=== PATIENT | female | born 1955 | race Caucasian/White ===

== ENCOUNTER 2019-09-11 08:00 | Outpatient (RCR) | payer OTHER, SELFPAY ==
--- NOTE | 2019-08-06 15:20 | PTOPEVAL ---
PHYSICAL THERAPY EVALUATION AND PLAN OF CARE 08-06-19 Physical Therapy evaluation was completed for the diagnosis of vertigo and dizziness. Treatment plan is 0-2x/week for 5 weeks. She will be out of town for one week of this time frame. Thank you for referring Danelle to [facility]. Please review, sign, date and return this plan of care ANA. I agree with and certify that the following plan of care is medically necessary. Referring Physician Date Attending Provider: Lisy Ken NP *PT Outpatient Evaluation Start: 08/06/19 14:10 Document 08/06/19 14:10 MANNIE (Rec: 08/06/19 15:20 MANNIE [id number]) Therapy Assessment Status Assessment Status Assessment Status Evaluation Outpatient Past Medical History Neurological History Hx Cerebrovascular Accident (CVA) Yes: L cerebral, residual of balance;onset of CVA was dizziness Hx Transient Ischemic Attacks (TIA) Yes Hx Other Neurological Disorders Yes: neuropathy in LE's, both legs from knees to feet Cardiovascular History Hx Other Cardiac Disorders Yes: take HTN meds for diabetic dx; low EF, then returned to normal Respiratory History Hx Respiratory Disorders No Significant History Gastrointestinal History Hx Gastrointestinal Disorders No Significant History Genitourinary History Hx Genitourinary Disorders No Significant History Musculoskeletal History Hx Back Pain Yes: general joint and getting old pain --knees,low back Hematological History Hx Hematological Disorders No Significant History Endocrine History Hx Diabetes Yes: med control HEENT History Hx Cataracts Yes: both eyes; Hx Other HEENT Disorders Yes: glasses-bifocals, correct vision, to eye dr within past year Integumentary History Hx Skin Disorders No Significant History Evaluation Information Problem Diagnosis vertigo, dizziness Onset Jul 23, 2019 Subjective Information woke up with dizziness Query Text:As Reported By Patient/ Family Previous Treatments Previous Treatments For This Problem prev PT in October 2017, here for vertigo Prior Level of Function Activity Level (Last 3 Months) Occupation retired in Aug 2018, social work at hospital; due to dizziness and balance; Hand Dominance Right Medications Home Meds (Include: OTC, RX, Vitamins, atorvastatin, gabapentin- Herbals, Dose, Route,and Frequency) neuropathy of hands and LE; Query Text:Home Med Entries Will No insulin, clopidogrel/plavix-
--- NOTE | 2019-09-11 08:51 | PTOPEVAL ---
PHYSICAL THERAPY DISCHARGE 09-11-2019 Mrs. Figueroa has received 7 Physical Therapy sessions, from August 06 to today, for the diagnosis of vertigo. During the therapy time frame, she had one fall, getting off an airplane and caught toe on threshold. And this past weekend, caught her toe on the threshold at home and fractured L toe. Then when cutting her L toe nails, cut her toe and was bleeding. She is covering the wound and monitoring. The PT goals were achieved; she no longer has dizziness/vertigo issues. She is independent with her home exercise program and safety education has been completed--wear shoes in her home, more cautious when walking and stairs to clear foot. Thank you for referring Mrs. Figueroa to [facility]. Please review, sign, date and return this plan of care ANA. I agree with and certify that the following plan of care is medically necessary. Referring Physician Date Attending Provider: Lisy Ken, [employer]PER[employer] *PT Outpatient Discharge Document 09/11/19 08:39 MANNIE (Rec: 09/11/19 08:51 MANNIE [id number]) Problem Subjective Information Danelle reports: has not had any Query Text:As Reported By Patient/ dizziness for about 3 weeks; Family broke L toe, hit it on threshold step in her home- did not fall, but broke toe; when cutting toe nail on L foot, cut her skin and bleeding due to plavix; feels like she has improved and ready for discharge from PT; is doing her home exercises and no questions. Pain Assessment Timing of Pain Assessment Timing of Pain Assessment Assessment Self Report Self Report Pain Level 0 Pain Score Pain Score 0: Self Report Lower Extremity Muscle Strength Testing General Lower Extremity Strength Gross Lower Extremity Strength standing: B PF and DF with 1 UE support, 10 reps through small range, to avoid increase in pain of L foot/toe; walking with head turns R/L and Up/down without loss of balance and no reports of dizziness; sitting: eye tracking up/down and side/side 10 reps with smooth eye motions and good control; standing turns to R and L 2x without any issues; self assessment with the Dizziness Handicap Inventory, she rated herself at 12= Low perception of handicap.
== END 2019-10-26 10:52 | disposition home or self-care (01) ==
LOC: ANHPT 08:00
PROVIDERS: PCP Nurse Practitioner Adult Health; Visit Provider Nurse Practitioner Adult Health
DX: R42 Dizziness and giddiness (principal)
CPT/HCPCS: 97110; 97162

== ENCOUNTER 2020-05-02 08:51 | Inpatient (IN) | payer OTHER, SELFPAY ==
[2020-05-02] VITALS (39 sets, daily range): BP systolic 104–169; BP diastolic 34–84; PULSE 75–102; RESP 15–34; TEMP 36.2–36.6; O2SAT 90–100; BMI 28.8
--- NOTE | ~2020-05-02 | XR_ITS ---
EXAMINATION: XR chest 2V DATE: 05/02/2020 12:20 INDICATION: Light sensitivity headache. TECHNIQUE: Frontal and lateral views of the chest were obtained. COMPARISON: Chest single view 11/08/2017 FINDINGS: The chest demonstrates clear lungs without pneumonia, pleural effusion, or pneumothorax. Th e heart size is normal. IMPRESSION: 1. No acute cardiopulmonary disease. Reviewed, dictated and finalized at location A.
--- NOTE | ~2020-05-02 | MR_ITS ---
EXAMINATION: MR brain IAC wo/w con EXAM DATE: 05/04/2020 12:21 INDICATION: Headaches, sensitivity to light. TECHNIQUE: Multi-sequential, multiplanar MR images of the brain, brainstem, internal auditory canals were obtained without contrast. Whole brain sagittal T1, axial diffusion, gradient echo (T2*), T1, T 2, FLAIR sequences obtained. High resolution coronal 3-D FIESTA, coronal T1 FSE, axial T1 FSPGR of t he internal auditory canals. Patient was then injected with 14 cc Multihance contrast intravenously. Postcontrast axial and coronal T1 weighted whole brain, axial and coronal high resolution T1 IAC seq uences obtained. Correlation is made to head CT 05/02/2020. Compared to prior MRI from 09/28/2018 FINDINGS: No evidence of mastoid or middle ear opacification. The 7th/8th cranial nerve complexes a re symmetric, normal in course and caliber. No cerebellopontine angle masses. Posterior fossa unrem arkable. There is a moderate-sized old left cerebellar infarction. Mild cerebral atrophy. There are no areas of restricted diffusion to suggest acute infarction. There is no acute hemorrhage seen on the T2*, a hemosiderin sensitive sequence. No intraparenchymal brain mass. The ventricles are normal in size. There are no extra-axial collections. Flow voids are seen in the cerebral arteries on the T2-weight ed sequences consistent with their expected patency. Patient has had bilateral ocular lens surgery. Soft tissue is unremarkable. There are no areas of abnormal enhancement on the postcontrast images . IMPRESSION: Moderate-sized old left cerebellar infarction. Reviewed, dictated and finalized at location A.
--- NOTE | ~2020-05-02 | CT_ITS ---
EXAMINATION: CT brain wo con DATE: 05/02/2020 09:27 INDICATION: Headache. TECHNIQUE: Computed tomography (CT) of the head was performed without intravenous contrast. The mA wa s adjusted according to patient size. Iterative reconstruction technique was employed. The dose-lengt h product was 605.33 mGy-cm. COMPARISON: Head CT 06/12/2019 FINDINGS: There is an old infarct in posterior inferior left cerebellum. There is no intracranial hem orrhage, acute infarction, or abnormal intracranial mass lesion. The ventricles are normal in size. T he paranasal sinuses are clear. There is a chronic small right mastoid effusion. There are likely joseline nges of ocular lens replacement surgeries. IMPRESSION: 1. Old infarct in left cerebellum. Reviewed, dictated and finalized at location A.
--- NOTE | 2020-05-02 09:06 | ED.HA ---
HPI - Headache General Chief Complaint: Headache Stated Complaint: light sensitivity, h/a , n/v Time Seen by Provider: 05/02/20 09:03 Source: patient Mode of arrival: ambulatory Limitations: no limitations History of Present Illness HPI Narrative: Pt c/o a headache, frontal, 8/10, non radiating, throbbing, accompanied by n/v started 2 days ago. Denies fever, neck stiffness, speech or visual disturbance, weakness, numbness or unsteady gait. Pt does admit to being dizzy earlier and now resolved. She states she has a h/o dizziness. MD elicited complaint: headache and migraine Related Data Home Medications Medication Instructions Recorded Confirmed atorvastatin 05/02/20 carvedilol 05/02/20 clopidogrel 05/02/20 duloxetine mg PO 05/02/20 gabapentin 05/02/20 insulin glargine [Lantus U-100 SUBCUT 05/02/20 Insulin] insulin lispro [Humalog KwikPen unit SUBCUT 05/02/20 Insulin] losartan 05/02/20 Allergies Allergy/AdvReac Type Severity Reaction Status Date / Time No Known Allergies Allergy Verified 05/02/20 09:06 Review of Systems Review of Systems: All systems reviewed & are unremarkable except as noted in HPI and below Constitutional: Constitutional: Denies body ache(s), Denies chills, Denies excessive sweating, Denies fatigue, Denies fever(s), Denies headache(s), Denies lethargy, Denies malaise, Denies weakness and Denies weight loss Eyes: Eyes: Denies blurry vision, Denies change in vision and Denies loss of vision ENT: Denies dizziness, Denies ear discharge, Denies headache(s), Denies lip swelling, Denies epistaxis, Denies nasal congestion, Denies neck pain, Denies throat swelling and Denies tongue swelling Cardiovascular: Cardiovascular: Denies chest pain, Denies chest pain at rest, Denies chest pain with activity, Denies diaphoresis, Denies rapid heart rate, Denies edema, Denies irregular heart rhythm, Denies lightheadedness, Denies palpitations, Denies dyspnea and Denies dyspnea on exertion Respiratory: Respiratory: Denies chest congestion, Denies cough, Denies hemoptysis, Denies dyspnea and Denies dyspnea on exertion Gastrointestinal: Gastrointestinal: Denies abdominal pain, Denies melena, Denies hematochezia, Denies diarrhea, Denies nausea, Denies vomiting and Denies hematemesis Musculoskeletal: Musculoskeletal: Denies abnormal gait, Denies deformity, Denies joint swelling, Denies limited range of motion, Denies neck pain and Denies numbness Neurologic: Denies Abnormal speech present, Denies abnormal gait, Denies confusion, Denies dizziness, Denies focal weakness, Denies loss of vision, Denies numbness, Denies Other visual disturbances, Denies Sensory deficit (Neuro) and Denies weakness Psychiatric: Psychiatric: Denies confusion, Denies depression, Denies auditory hallucinations, Denies homicidal ideation and Denies suicidal ideation Endocrine: Endocrine: Denies cold intolerance, Denies excessive sweating, Denies fatigue, Denies heat intolerance and Denies palpitations Hematologic/Lymphatic: Hematologic/Lymphatic: Denies easy bleeding and Denies easy bruising Allergic/Immunologic: Allergic/Immunologic: Denies lip swelling, Denies throat swelling and Denies tongue swelling [facility] Family History Family History (Updated 11/12/16 @ 23:56 by DOCTOR UNKNOWN) Father Cerebrovascular accident, Onset Age: 58 Family history of chronic obstructive pulmonary disease Family history of diabetes mellitus in first degree relative Family history of congestive heart failure Patient's father is Mother Carcinoma of colon Family history of diabetes mellitus in first degree relative Family history of coronary artery disease Family history of heart disease in male family member before age 55 Other Diabetes mellitus Family history of arthritis Family history of malignant neoplasm Social History Social History Smoking status: Never smoker Alcohol intake: current Exam
--- NOTE | 2020-05-02 09:12 | PC.NURSE ---
ERP at bedside for pt assessment.
--- NOTE | 2020-05-02 09:23 | PC.NURSE ---
Pt to CT.
--- NOTE | 2020-05-02 09:30 | PC.NURSE ---
Pt returned to room. No change in condition. Remains A&O x4 with clear speech. VSS.
[2020-05-02] MEDS: SODIUM CHLORIDE 0.9% IV 1,000 ML 999 ML IV CONT (09:31)
[2020-05-02] MEDS: diphenhydrAMINE HCl INJ 50 MG/ML VIAL 25 MG IV PUSH (09:32)
[2020-05-02] MEDS: METOCLOPRAMIDE HCL INJ 10 MG/2 ML VIAL IV PUSH (09:32)
--- NOTE | 2020-05-02 09:32 | PC.NURSE ---
Pt medicated per orders.
[2020-05-02 09:52] LABS: Basophils Absolute Auto 0.1 K/mm3 (0.0-0.1); Basophils Percent Auto 0.5 % (0.2-1.2); Eosinophils Absolute Auto 0.1 K/mm3 (0-0.3); Eosinophils Percent Auto 0.4 % (0-4.4); Hematocrit 49.7 % (37.0-47.0); Hemoglobin 16.2 g/dL (12.0-15.0); Immature Granulocyte Absolute 0.04 K/mm3 (0.00-0.031); Immature Granulocyte Percent A 0.3 % (0-0.5); Lymphocytes Absolute Auto 0.86 K/mm3 (0.9-3.2); Lymphocytes Percent Auto 5.9 % (18.3-44.2); Mean Corpuscular HGB Conc 32.6 g/dl (32-36); Mean Corpuscular Hemoglobin 31.5 pg (26-34); Mean Corpuscular Volume 96.5 fl (80-100); Mean Platelet Volume 10.9 fl (7.4-10.4); Monocytes Absolute Auto 0.4 K/mm3 (0.1-0.6); Monocytes Percent Auto 2.6 % (2.6-8.5); Neutrophils Absolute Auto 13.1 K/mm3 (1.3-6.7); Neutrophils Percent Auto 90.3 % (45.5-73.1); Platelet Count Result 278 k/mm3 (150-375); Red Blood Count 5.15 M/mm3 (4.2-5.4); Red Cell Distribution Width 12.5 % (11.5-14.5); White Blood Count 14.5 K/mm3 (4.5-10.0)
[2020-05-02 10:05] LABS: Anion Gap 22 mmol/L (8-16); Blood Urea Nitrogen 18 mg/dL (7-17); Calcium 10.8 mg/dL (8.4-10.2); Carbon Dioxide 15 mmol/L (22-30); Chloride 97 mmol/L (98-107); Estimated CRCL calculation 62 ml/min; Estimated Glomerular Filt Rate > 60; Glucose 476 mg/dL (65-105); Potassium 4.4 mmol/L (3.4-5.0); Sodium 134 mmol/L (137-145)
--- NOTE | 2020-05-02 10:16 | ECG_ITS ---
Measurements Intervals [place] Rate: 88 P: 37 MI: 190 QRS: -16 QRSD: 87 T: 19 QT: 381 QTc: 463 Interpretive Statements SINUS RHYTHM LOW QRS VOLTAGE IN PRECORDIAL LEADS INFERIOR INFARCT, AGE INDETERMINATE BASELINE ARTIFACT- I, II, AVR, AVL, AVF, V4-V6 ABNORMAL ECG Electronically Signed On 05-02-2020 20:15:34 CDT by Paolo Ahmadi D.O.
[2020-05-02 10:35] LABS: Alveolar/Arterial O2 Gradient 23.9 mmHg; Base Excess ABG -12.9 mEq/l (+/-2.0); Carboxyhemoglobin 0.7 % THb (0-2.0); Fractional Inspired Oxygen 21 %; HCO3 ABG 14.5 mEq/l (22.0-26.0); Methemoglobin ABG 0.4 %THb (0-1.5); Oxygen Saturation ABG 93.2 % (95.0-100.0); Oxyhemoglobin 92.8 % THb (90.0-100.0); PCO2 ABG 38.2 mmHg (35.0-45.0); PO2 ABG 80.1 mmHg (80.0-100.0); PO2 FiO2 Ratio Arterial Blood 3.81 %; Reduced Hemoglobin 6.1 %THb (0-5.0); Total Hemoglobin 14.5 g/dL (12.0-18.0)
[2020-05-02 10:38] LABS: Device ROOM AIR; Modified Allen's Test Pass; Site Drawn RIGHT RADIAL; pH ABG 7.196 (7.350-7.450)
[2020-05-02] MEDS: LACTATED RINGERS 1,000 ML 999 ML IV CONT ×2 (10:46→11:25)
[2020-05-02 11:39] LABS: Glucose Point of Care 317 (65-105)
[2020-05-02 11:50] LABS: Add Urine Microscopic? YES; Appearance Urine Clear (Clear); Bilirubin Urine Negative (Negative); Blood Urine Negative (Negative); Color Urine Straw (Yellow); Glucose Urine UA 3+ mg/dL (Negative); Ketones Urine 2+ mg/dL (Negative); Leukocyte Esterase Ur Trace LEU/UL (Negative); Mucus Urine Rare /lpf; Nitrate Urine Negative (Negative); Protein Urine 1+ mg/dL (Negative); RBC Urine 0-2 /hpf (0-2); Specific Grav Ur 1.025 (1.001-1.035); Urobilinogen Urine Negative mg/dL (<2.0); WBC Urine 0-3 /hpf
[2020-05-02] MEDS: SODIUM CHLORIDE 0.9% IV 1,000 ML 150 ML IV CONT (12:30)
[2020-05-02 13:04] LABS: Glucose Point of Care 357 (65-105)
[2020-05-02] MEDS: LACTATED RINGERS 1,000 ML 100 ML IV CONT (13:09)
[2020-05-02] MEDS: INSULIN HUMAN REGULAR (*BKC) 100 UNITS in SODIUM CHLORIDE 0.9% IV 99 ML 5.9 UNITS IV CONT (13:09)
[2020-05-02 14:08] LABS: Glucose Point of Care 345 (65-105)
--- NOTE | 2020-05-02 14:19 | WPDCNINT ---
Assessment and Plan Assessment and plan (1) DKA (diabetic ketoacidoses): Qualifiers: Diabetes mellitus complication detail: without coma Diabetes mellitus type: other specified (including RICHY) Qualified Code(s): E13.10 - Other specified diabetes mellitus with ketoacidosis without coma Code(s): E11.10 - Type 2 diabetes mellitus with ketoacidosis without coma Status: Acute Assessment and Plan: patient presented with headaches, nausea, vomiting was found to be in DKA with elevated anion gap, severe metabolic acidosis on ABGs - patient given 3 L IV fluid bolus in the ER and started on insulin infusion per DKA protocol - will transition to long-acting insulin and sliding scale insulin once anion gap closes - currently NPO except ice chips - 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 With the lights are dimmed pain seems to improve - patient received Benadryl, metoclopramide in the ED with improvement - CT brain showed old infarct in left cerebellum, no acute intracranial hemorrhage, acute infarction abnormal intracranial mass lesions were noted. - Tylenol for pain control (3) Hyperlipidemia: Qualifiers: Hyperlipidemia type: unspecified Qualified Code(s): E78.5 - Hyperlipidemia, unspecified Code(s): E78.5 - Hyperlipidemia, unspecified Status: Acute Assessment and Plan: and will continue statin (4) History of cerebellar stroke: Code(s): Z86.73 - Personal history of transient ischemic attack (TIA), and cerebral infarction without residual deficits Status: Acute Assessment and Plan: patient with history of cerebellar stroke, will continue Plavix, statin - patient with neuropathy, on gabapentin, will continue Additional Plan discussed with patient updated her with her condition and plan of care. I explained to her that she will be on the insulin infusion till her acid levels anion gap closes after which she will be transition to long-acting insulin Lantus and sliding scale insulin. I answered all questions code status: Full code critical care time spent: 37 minutes Due to a high probability of clinically significant, life threatening deterioration, the patient required my highest level of preparedness to intervene emergently and I personally spent this critical care time directly and personally managing the patient. This critical care time included obtaining a history; examining the patient; pulse oximetry; ordering and review of studies; arranging urgent treatment with development of a management plan; evaluation of patient's response to treatment; frequent reassessment; and discussions with other providers. It was exclusive of separately billable procedures and treating other patients and teaching time. Please see Assessment and Plan section and the rest of the note for further information on patient assessment and treatment Brilliandeer Lopper Consult Note Consult date: 05/02/20 Time Seen: 14:20 Reason for consult: diabetic ketoacidosis, headache, nausea, vomiting HPI: Gregoria Figueroa is a 64 year old female with significant past medical history of diabetes hyperlipidemia, CVA, depression, essential hypertension presented to the ED on 05/02/2020 with complains of headache, nausea, vomiting for 2 days. Patient denies any fevers, neck stiffness, speech or visual disturbances, weakness, numbness on steady gait. She has a history of dizziness. In the ED patient was found to be in DKA with elevated anion gap, significant metabolic acidosis on ABGs, blood sugars of 476. Hemoglobin A1c of 9.7. WBC count of 14.5. Patient was transfer the ICU for further management patient seen and examined t
[2020-05-02] MEDS: INSULIN HUMAN REGULAR (*BKC) 100 UNITS in SODIUM CHLORIDE 0.9% IV 99 ML 9.4 UNITS IV CONT (15:05)
[2020-05-02 15:19] LABS: Anion Gap 15 mmol/L (8-16); Blood Urea Nitrogen 13 mg/dL (7-17); Calcium 9.4 mg/dL (8.4-10.2); Carbon Dioxide 16 mmol/L (22-30); Chloride 103 mmol/L (98-107); Estimated CRCL calculation 80 ml/min; Estimated Glomerular Filt Rate > 60; Glucose 304 mg/dL (65-105); Magnesium 1.7 mg/dL (1.6-2.3); Potassium 4.1 mmol/L (3.4-5.0); Sodium 134 mmol/L (137-145)
--- NOTE | 2020-05-02 15:20 | PCDIET ---
Received Physician consult for DKA. Newly admitted today. Patient is currently on insulin drip, NPO. Called nurse today-we will educate prior to discharge.
[2020-05-02 15:30] LABS: Hemoglobin A1C 9.5 % (<5.7)
[2020-05-02] MEDS: ACETAMINOPHEN 325 MG TABLET 650 MG PO (16:14)
--- NOTE | 2020-05-02 16:14 | PM.IMHP ---
H&P: HPI History of Present Illness Date/Time: 05/02/20 16:14 Chief complaint: dka Narrative: Gregoria Figueroa is a 64 year old female Was a history of having diabetes type 1. She was diagnosed when she was 17 years old. She typically has her blood sugars under control. She is on long-acting insulin as well as Short-acting. The patient stated that she has been having headache on and off for about 3 days. She said that 1 night she laid down as she could remember she took her Lantus so she only took a portion of it in the next day she is running high to try to cover it with intermediate insulin. She felt like she could not catch up the blood sugars. This morning she had a severe headache and felt like she was dry. She stated that she felt like she lost control of her blood sugars as needed comes hospital. Plus she had a severe headache lower sciatic she never had before when she was having photophobia as well. She also had nausea with it but no vomiting. The patient was given 3 L of fluid bolus in the emergency room as per DKA protocol and she stated that she was having some relief. Her A1c is listed as 9.7. Her blood sugars are now in the 300s. Earlier today is 476. Her anion gap was 22 when she 1st came in and now 15. Patient was started on the DKA protocol and on insulin drip. Her head CT was just read as an old infarct in left cerebellum. Chest x-ray read as no acute cardiopulmonary disease. Arterial blood gases pH 7.196 initially with bicarb 14.5. Patient was admitted to the intensive care unit for DKA. She had 2+ ketones in her urine. 3+ glucose. White count was noted to be 14.5. H&H 16.2 and 49.7. Patient appears to be dry. Date of service 05/02/2020. Review of Systems Review of Systems: All systems reviewed & are unremarkable except as noted in HPI and below Constitutional: Constitutional: Reports as per HPI and Reports no additional constitutional complaints Eyes: Eyes: Reports as per HPI and Reports no additional eye complaints ENT: Reports system reviewed and no additional complaints, except as documented and Reports Normal hearing present Cardiovascular: Cardiovascular: Reports no additional cardiovascular complaints Respiratory: Respiratory: Reports no additional respiratory complaints and Reports no additional respiratory complaints Gastrointestinal: Gastrointestinal: Reports as per HPI and Reports no additional gastrointestinal complaints Musculoskeletal: Musculoskeletal: Reports no additional musculoskeletal complaints Integumentary/Breasts: Skin/Breast: Reports system reviewed and no additional complaints, except as docu and Reports as per HPI Neurologic: Reports system reviewed and no additional complaints, except as documented, Reports as per HPI and Reports Normal hearing present Psychiatric: Psychiatric: Reports no additional psychiatric complaints and Reports as per HPI Endocrine: Endocrine: Reports no additional endocrine complaints Hematologic/Lymphatic: Hematologic/Lymphatic: Reports no additional hematologic/lymphatic complaints Allergic/Immunologic: Allergic/Immunologic: Reports no additional allergic/immunologic complaints [facility] Past Medical History Medical History (Updated 05/02/20 @ 16:33 by Lula Cummings NP) Broken heart syndrome Closed left tibial fracture Congestive heart failure diastolic dysfunction Depression Diabetes type 1, uncontrolled A1c 9.7 Diabetic neuropathy Diabetic retinopathy Surgical History Surgical History (Updated 05/02/20 @ 16:27 by Lula Cummings NP) H/O bilateral cataract extraction H/O right breast biopsy History of section, classical x1 S/p bilateral carpal tunnel release Family History Family History Father Cerebrovascular accident, Onset Age: 58 Family history of chronic obstructive pulmonary disease Family history of diabetes mellitus in first degree relat
[2020-05-02 16:35] LABS: Glucose Point of Care 296 (65-105)
[2020-05-02 16:35] LABS: Glucose Point of Care 217 (65-105)
[2020-05-02] MEDS: KCL 20 MEQ/D5/0.45% SOD CHL 1,000 ML 150 ML IV CONT (16:50)
[2020-05-02 17:09] LABS: Glucose Point of Care 197 (65-105)
[2020-05-02 18:08] LABS: Glucose Point of Care 167 (65-105)
[2020-05-02 18:55] LABS: Glucose Point of Care 154 (65-105)
[2020-05-02 20:14] LABS: Anion Gap 4 mmol/L (8-16); Blood Urea Nitrogen 12 mg/dL (7-17); Calcium 9.5 mg/dL (8.4-10.2); Carbon Dioxide 26 mmol/L (22-30); Chloride 106 mmol/L (98-107); Estimated CRCL calculation 94 ml/min; Estimated Glomerular Filt Rate > 60; Glucose 153 mg/dL (65-105); Potassium 3.9 mmol/L (3.4-5.0); Sodium 136 mmol/L (137-145)
[2020-05-02 20:55] LABS: Glucose Point of Care 126 (65-105)
[2020-05-02] MEDS: ONDANSETRON INJ 4 MG/2 ML VIAL IV PUSH (21:30)
[2020-05-02] MEDS: carvediloL 3.125 MG TABLET PO (21:42)
[2020-05-02] MEDS: INSULIN GLARGINE (*BKC) 100 UNITS/ML 20 UNITS SUB-Q (21:43)
[2020-05-02] MEDS: GABAPENTIN 300 MG CAPSULE 600 MG PO (21:46)
[2020-05-02 21:49] LABS: Glucose Point of Care 122 (65-105)
[2020-05-02 22:53] LABS: Glucose Point of Care 152 (65-105)
[2020-05-03] VITALS (14 sets, daily range): BP systolic 107–136; BP diastolic 44–89; PULSE 68–98; RESP 16–22; TEMP 36.2–36.7; O2SAT 93–96
[2020-05-03] MEDS: IBUPROFEN 400 MG TABLET PO (01:05)
[2020-05-03 03:53] LABS: Basophils Absolute Auto 0.1 K/mm3 (0.0-0.1); Basophils Percent Auto 0.7 % (0.2-1.2); Eosinophils Absolute Auto 0.2 K/mm3 (0-0.3); Hematocrit 40.5 % (37.0-47.0); Hemoglobin 13.7 g/dL (12.0-15.0); Immature Granulocyte Absolute 0.02 K/mm3 (0.00-0.031); Immature Granulocyte Percent A 0.2 % (0-0.5); Lymphocytes Absolute Auto 2.59 K/mm3 (0.9-3.2); Lymphocytes Percent Auto 25.1 % (18.3-44.2); Mean Corpuscular HGB Conc 33.8 g/dl (32-36); Mean Corpuscular Hemoglobin 31.6 pg (26-34); Mean Corpuscular Volume 93.5 fl (80-100); Mean Platelet Volume 10.6 fl (7.4-10.4); Monocytes Absolute Auto 0.7 K/mm3 (0.1-0.6); Monocytes Percent Auto 7.2 % (2.6-8.5); Neutrophils Absolute Auto 6.7 K/mm3 (1.3-6.7); Neutrophils Percent Auto 64.8 % (45.5-73.1); Platelet Count Result 227 k/mm3 (150-375); Red Blood Count 4.33 M/mm3 (4.2-5.4); Red Cell Distribution Width 12.4 % (11.5-14.5); White Blood Count 10.3 K/mm3 (4.5-10.0)
[2020-05-03 04:11] LABS: Anion Gap 2 mmol/L (8-16); Blood Urea Nitrogen 8 mg/dL (7-17); Calcium 9.6 mg/dL (8.4-10.2); Carbon Dioxide 25 mmol/L (22-30); Chloride 108 mmol/L (98-107); Estimated CRCL calculation 114 ml/min; Estimated Glomerular Filt Rate > 60; Glucose 195 mg/dL (65-105); Magnesium 1.8 mg/dL (1.6-2.3); Phosphorus 2.7 mg/dL (2.5-4.5); Potassium 4.1 mmol/L (3.4-5.0); Sodium 135 mmol/L (137-145)
[2020-05-03 08:41] LABS: Glucose Point of Care 250 (65-105)
[2020-05-03] MEDS: INSULIN ASPART (*BKC) 100 UNITS/ML SUB-Q ×3 (09:12→18:00)
[2020-05-03] MEDS: GABAPENTIN 300 MG CAPSULE 600 MG PO ×3 (09:12→21:20)
[2020-05-03] MEDS: carvediloL 3.125 MG TABLET PO ×2 (09:13→20:21)
[2020-05-03] MEDS: ATORVASTATIN 40 MG TABLET 80 MG PO (09:13)
[2020-05-03] MEDS: CLOPIDOGREL BISULFATE 75 MG TABLET PO (09:13)
[2020-05-03] MEDS: LOSARTAN POTASSIUM 25 MG TABLET PO (09:13)
[2020-05-03] MEDS: DULoxetine HCL 60 MG CAPSULE.DR PO (09:16)
--- NOTE | 2020-05-03 11:00 | PC.NURSE ---
This patient, Gregoria Figueroa, was received from ICU on 05/03/20 at 1100. Personal belongings list checked and signed. Patient/family oriented to unit policies and routines. Report received from EVE Ling.
--- NOTE | 2020-05-03 11:20 | PC.NURSE ---
Patient transferred to [facility] at 1055 via wheelchair. Report called to Esau. Belongings and medications transferred with patient.
--- NOTE | 2020-05-03 11:58 | WPDINTPN ---
Progress Note: A&P Assessment and Plan (1) DKA (diabetic ketoacidoses): Qualifiers: Diabetes mellitus complication detail: without coma Diabetes mellitus type: other specified (including RICHY) Qualified Code(s): E13.10 - Other specified diabetes mellitus with ketoacidosis without coma Code(s): E11.10 - Type 2 diabetes mellitus with ketoacidosis without coma Status: Acute Assessment and Plan: patient presented with headaches, nausea, vomiting was found to be in DKA with elevated anion gap, severe metabolic acidosis on ABGs - patient transition to long-acting insulin sliding scale insulin with Accu-Cheks since her anion gap has closed. - Patient is tolerating p.o. diet - grapple crew leader human service technician to follow the patient - hemoglobin A1c is 9.7 - patient will have to follow-up with her primary care doctor or an washer off for better blood sugar control given her elevated hemoglobin A1c (2) Headache: Qualifiers: Headache type: unspecified Code(s): R51 - Headache Status: Acute Assessment and Plan: RESOLVED - patient presented with headache 6 to 7/10 intensity, very sensitive to light, constant in nature. With the lights are dimmed pain seems to improve - patient received Benadryl, metoclopramide in the ED with improvement - CT brain showed old infarct in left cerebellum, no acute intracranial hemorrhage, acute infarction abnormal intracranial mass lesions were noted. - Tylenol for pain control (3) Hyperlipidemia: Qualifiers: Hyperlipidemia type: unspecified Qualified Code(s): E78.5 - Hyperlipidemia, unspecified Code(s): E78.5 - Hyperlipidemia, unspecified Status: Chronic Assessment and Plan: continue statin (4) History of cerebellar stroke: Code(s): Z86.73 - Personal history of transient ischemic attack (TIA), and cerebral infarction without residual deficits Status: Chronic Assessment and Plan: patient with history of cerebellar stroke, -continue Plavix, statin - patient with neuropathy, continue gabapentin Additional Plan discussed with patient updated her with her condition and plan of care. I answered all questions code status: Full code critical care time spent: 31 minutes Due to a high probability of clinically significant, life threatening deterioration, the patient required my highest level of preparedness to intervene emergently and I personally spent this critical care time directly and personally managing the patient. This critical care time included obtaining a history; examining the patient; pulse oximetry; ordering and review of studies; arranging urgent treatment with development of a management plan; evaluation of patient's response to treatment; frequent reassessment; and discussions with other providers. It was exclusive of separately billable procedures and treating other patients and teaching time. Please see Assessment and Plan section and the rest of the note for further information on patient assessment and treatment Subjective Date/time seen: 05/03/20 11:58 Interval history: Reason for consult: diabetic ketoacidosis, headache, nausea, vomiting 05/03/2020: Patient seen examined this morning in the ICU, patient has been off insulin infusion, anion gap has closed, patient tolerating oral intake. Patient denies any chest pain, shortness of breath, abdominal pain, nausea, vomiting. Headache has also improved significantly. Patient with adequate urine output, afebrile and hemodynamically stable Review of Systems Review of Systems: All systems reviewed & are unremarkable except as noted in HPI and below Exam Const: General: comfortable and no acute distress HENMT: Mouth: Yes moist mucous membranes Eyes: Sclera: sclerae normal Pupils: Equal, round and reactive pupils present Neck: Neck: supple Resp: Effort & Inspection: normal respiratory effort Auscul
[2020-05-03 12:45] LABS: Hematocrit 42.7 % (37.0-47.0); Hemoglobin 14.4 g/dL (12.0-15.0); Mean Corpuscular HGB Conc 33.7 g/dl (32-36); Mean Corpuscular Hemoglobin 31.4 pg (26-34); Mean Corpuscular Volume 93.2 fl (80-100); Mean Platelet Volume 10.9 fl (7.4-10.4); Platelet Count Result 289 k/mm3 (150-375); Red Blood Count 4.58 M/mm3 (4.2-5.4); Red Cell Distribution Width 12.8 % (11.5-14.5); White Blood Count 9.2 K/mm3 (4.5-10.0)
[2020-05-03 12:59] LABS: Anion Gap 6 mmol/L (8-16); Blood Urea Nitrogen 11 mg/dL (7-17); Calcium 9.9 mg/dL (8.4-10.2); Carbon Dioxide 24 mmol/L (22-30); Chloride 102 mmol/L (98-107); Estimated CRCL calculation 69 ml/min; Estimated Glomerular Filt Rate > 60; Glucose 355 mg/dL (65-105); Magnesium 1.8 mg/dL (1.6-2.3); Potassium 4.5 mmol/L (3.4-5.0); Sodium 132 mmol/L (137-145)
[2020-05-03] MEDS: ACETAMINOPHEN 325 MG TABLET 650 MG PO ×2 (13:07→20:23)
[2020-05-03 13:15] LABS: Glucose Point of Care 348 (65-105)
[2020-05-03 13:48] LABS: Glucose Point of Care 335 (65-105)
--- NOTE | 2020-05-03 14:56 | PM.IMPN ---
Progress Note: A&P Assessment and Plan (1) DKA (diabetic ketoacidoses): Qualifiers: Diabetes mellitus complication detail: without coma Diabetes mellitus type: other specified (including RICHY) Qualified Code(s): E13.10 - Other specified diabetes mellitus with ketoacidosis without coma Code(s): E11.10 - Type 2 diabetes mellitus with ketoacidosis without coma Status: Acute Assessment and Plan: patient's anion gap is closing it is now 15. She is on the DKA protocol. She received 3 L of fluid in the emergency room. A1c is 9.7 resume Lantus and do sliding scale insulin once the patient is off of the insulin drip. Patient has leukocytosis but most likely it is stress related. paraeducator when able. 05/03/20 14:56 patient is 64-year-old female with history of type 1 diabetes since age of 17 patient states that she developed headache, severe throbbing with photophobia and nausea, patient also felt dehydrated and was tried to adjust her blood sugar with long-acting insulin however her blood sugar were rising and were not able to manage with long-acting insulin and sliding scale, patient presented emergency department and was found to have DKA with elevated anion gap and was quite dehydrated patient was given 3 L of bolus in the emergency department did improve her initial anion gap it was elevated with blood sugar 476, patient was started on insulin drip per DKA protocol and IV fluid and admitted to ICU which did bring blood sugar as well as her anion close to normal, today patient was transferred out of ICU, and she is now on her long-acting insulin as well as sliding scale, in terms of headache patient states though her CT scan of the brain is negative for any acute injury which showed patient with chronic cerebellar stroke, patient further states that her symptoms are similar to her last stroke with headache and later MRI showed the patient had a stroke, currently patient still complains of head and photophobia, patient denies any upper or lower extremity weakness or difficulty with speech, will go ahead and order MRI of the brain, consult neurologist for further recommendation, continue to hydrate the patient and monitor blood sugar, will have PT OT evaluate the patient (2) Hyperlipidemia: Qualifiers: Hyperlipidemia type: unspecified Qualified Code(s): E78.5 - Hyperlipidemia, unspecified Code(s): E78.5 - Hyperlipidemia, unspecified Status: Chronic Assessment and Plan: Continue with atorvastatin once the patient's anion gap is closed and she can we. (3) Diabetic neuropathy: Code(s): E11.40 - Type 2 diabetes mellitus with diabetic neuropathy, unspecified Status: Chronic Assessment and Plan: Patient is on duloxetine. And gabapentin (4) Depression: Code(s): F32.9 - Major depressive disorder, single episode, unspecified Status: Chronic Assessment and Plan: continue with duloxetine. (5) Congestive heart failure: Code(s): I50.9 - Heart failure, unspecified Status: Chronic Assessment and Plan: The patient is on Coreg and losartan. (6) Headache: Qualifiers: Headache type: unspecified Code(s): R51 - Headache Status: Acute Assessment and Plan: She was given Tylenol we can give her Toradol as well if need be. plan is above (7) History of cerebellar stroke: Code(s): Z86.73 - Personal history of transient ischemic attack (TIA), and cerebral infarction without residual deficits Status: Chronic Assessment and Plan: Continue bladder and atorvastatin. Subjective Date/time seen: 05/03/20 14:56 patient is 64-year-old female with history of type 1 diabetes since age of 17 patient states that she developed headache, severe throbbing with photophobia and nausea, patient also felt dehydrated and was tried to adjust her blood sugar with long-acting insulin however her blo
[2020-05-03 17:59] LABS: Glucose Point of Care 239 (65-105)
[2020-05-03] MEDS: INSULIN GLARGINE (*BKC) 100 UNITS/ML 30 UNITS SUB-Q (21:20)
[2020-05-03 21:29] LABS: Glucose Point of Care 260 (65-105)
[2020-05-04] MEDS: ACETAMINOPHEN 325 MG TABLET 650 MG PO ×2 (03:14→08:39)
[2020-05-04 06:00] VITALS: BP 138/56; PULSE 82; RESP 16; TEMP 36.3; O2SAT 93
[2020-05-04 06:02] LABS: Hematocrit 37.8 % (37.0-47.0); Hemoglobin 12.5 g/dL (12.0-15.0); Mean Corpuscular HGB Conc 33.1 g/dl (32-36); Mean Corpuscular Hemoglobin 31.3 pg (26-34); Mean Corpuscular Volume 94.5 fl (80-100); Platelet Count Result 196 k/mm3 (150-375); Red Cell Distribution Width 12.7 % (11.5-14.5); White Blood Count 6.5 K/mm3 (4.5-10.0)
[2020-05-04 06:09] LABS: Anion Gap 0 mmol/L (8-16); Blood Urea Nitrogen 12 mg/dL (7-17); Calcium 9.6 mg/dL (8.4-10.2); Carbon Dioxide 29 mmol/L (22-30); Chloride 106 mmol/L (98-107); Estimated CRCL calculation 79 ml/min; Estimated Glomerular Filt Rate > 60; Glucose 235 mg/dL (65-105); Potassium 3.7 mmol/L (3.4-5.0); Sodium 135 mmol/L (137-145)
[2020-05-04] MEDS: GABAPENTIN 300 MG CAPSULE 600 MG PO ×3 (06:23→21:46)
[2020-05-04 08:10] LABS: Glucose Point of Care 167 (65-105)
[2020-05-04] MEDS: LOSARTAN POTASSIUM 25 MG TABLET PO (08:35)
[2020-05-04 08:36] VITALS: PULSE 85
[2020-05-04] MEDS: carvediloL 3.125 MG TABLET PO ×2 (08:36→21:46)
[2020-05-04] MEDS: DULoxetine HCL 60 MG CAPSULE.DR PO (08:40)
[2020-05-04] MEDS: ATORVASTATIN 40 MG TABLET 80 MG PO (08:40)
[2020-05-04] MEDS: CLOPIDOGREL BISULFATE 75 MG TABLET PO (08:40)
[2020-05-04] MEDS: POTASSIUM CHLORIDE 20 MEQ TABLET 40 MEQ PO (08:40)
--- NOTE | 2020-05-04 11:33 | WPDNEURCNPN ---
Assessment and Plan Assessment and plan (1) Depression: Code(s): F32.9 - Major depressive disorder, single episode, unspecified Status: Chronic (2) Diabetic neuropathy: Code(s): E11.40 - Type 2 diabetes mellitus with diabetic neuropathy, unspecified Status: Chronic (3) Congestive heart failure: Code(s): I50.9 - Heart failure, unspecified Status: Chronic (4) Diabetes type 1, uncontrolled: Code(s): E10.65 - Type 1 diabetes mellitus with hyperglycemia Status: Chronic (5) History of cerebellar stroke: Code(s): Z86.73 - Personal history of transient ischemic attack (TIA), and cerebral infarction without residual deficits Status: Chronic (6) Hyperlipidemia: Qualifiers: Hyperlipidemia type: unspecified Qualified Code(s): E78.5 - Hyperlipidemia, unspecified Code(s): E78.5 - Hyperlipidemia, unspecified Status: Chronic (7) DKA (diabetic ketoacidoses): Qualifiers: Diabetes mellitus complication detail: without coma Diabetes mellitus type: other specified (including RICHY) Qualified Code(s): E13.10 - Other specified diabetes mellitus with ketoacidosis without coma Code(s): E11.10 - Type 2 diabetes mellitus with ketoacidosis without coma Status: Acute Additional Plan plan is to obtain the MRI and further recommendation accordingly in addition after the MRI Doppler study of the carotids will be obtain Ult[place] if necessary CT angiogram of the brain and cervical spine Consult date: 05/04/20 Time Seen: 10:15 HPI: Grgeoria Figueroa is a 64 year old female Admitted to the hospital for the complains of headache on and off for the last 72 hours reportedly 1 night she laid down as she could remember she took only portion of her insulin as she was running high other day and she was trying to cover it. in the morning she has severe headache and felt as if she was dry and thought that she lost the control of her blood sugar. But she also developed severe headache which she never had before along with the photophobia ,nausea though no true vomiting. subsequent to the ER she was given 3L of fluid bolus as a DKA protocol her A1c was listed as 9.7 with blood sugar in 300s and early in the morning it was 476 and 9 gap was 22 though when she came 1st it was 15. Her CT of the head revealed infarct in the left cerebellum with no acute cardiopulmonary disease clinically she was admitted to intensive care for DKA she had 2+ ketones in her urine 3+ glucose and white count was 14.5 with hemoglobin 16.2 Initial examination otherwise was unremarkable. Because of the seriousness of the case principal security architect got involved subsequently MRI was obtained and now the neurologist's consultation has been requested her most recent lab is unremarkable and CT scan of the head has shown old infarct in the left cerebellum as mentioned before. Review of Systems Review of Systems: All systems reviewed & are unremarkable except as noted in HPI and below PMFSH Past Medical History Medical History (Updated 05/02/20 @ 16:33 by Lula Cummings NP) Broken heart syndrome Closed left tibial fracture Congestive heart failure diastolic dysfunction Depression Diabetes type 1, uncontrolled A1c 9.7 Diabetic neuropathy Diabetic retinopathy Surgical History Surgical History (Updated 05/02/20 @ 16:27 by Lula Cummings NP) H/O bilateral cataract extraction H/O right breast biopsy History of section, classical x1 S/p bilateral carpal tunnel release Family History Family History Father Cerebrovascular accident, Onset Age: 58 Family history of chronic obstructive pulmonary disease Family history of diabetes mellitus in first degree relative Family history of congestive heart failure Patient's father is Mother Carcinoma of colon Family history of diabetes mellitus in first degree relative
[2020-05-04] MEDS: INSULIN ASPART (*BKC) 100 UNITS/ML SUB-Q ×2 (12:54→17:53)
[2020-05-04 12:59] LABS: Glucose Point of Care 320 (65-105)
[2020-05-04 14:00] VITALS: BP 100/44; PULSE 81; RESP 14; TEMP 37; O2SAT 97
--- NOTE | 2020-05-04 15:22 | PM.IMPN ---
Progress Note: A&P Assessment and Plan (1) DKA (diabetic ketoacidoses): Qualifiers: Diabetes mellitus complication detail: without coma Diabetes mellitus type: other specified (including RICHY) Qualified Code(s): E13.10 - Other specified diabetes mellitus with ketoacidosis without coma Code(s): E11.10 - Type 2 diabetes mellitus with ketoacidosis without coma Status: Acute Assessment and Plan: patient's anion gap is closing it is now 15. She is on the DKA protocol. She received 3 L of fluid in the emergency room. A1c is 9.7 resume Lantus and do sliding scale insulin once the patient is off of the insulin drip. Patient has leukocytosis but most likely it is stress related. special educator when able. 05/04/20 15:22 patient is 64-year-old female with history of type 1 diabetes since age of 17 patient states that she developed headache, severe throbbing with photophobia and nausea, patient also felt dehydrated and was tried to adjust her blood sugar with long-acting insulin however her blood sugar were rising and were not able to manage with long-acting insulin and sliding scale, patient presented emergency department and was found to have DKA with elevated anion gap and was quite dehydrated patient was given 3 L of bolus in the emergency department did improve her initial anion gap it was elevated with blood sugar 476, patient was started on insulin drip per DKA protocol and IV fluid and admitted to ICU which did bring blood sugar as well as her anion close to normal, today patient was transferred out of ICU, and she is now on her long-acting insulin as well as sliding scale, in terms of headache patient states though her CT scan of the brain is negative for any acute injury which showed patient with chronic cerebellar stroke, patient further states that her symptoms are similar to her last stroke with headache and later MRI showed the patient had a stroke, currently patient still complains of head and photophobia, patient denies any upper or lower extremity weakness or difficulty with speech, Today 05/04 Patient had an MRI of the brain, results are pending, Patient stats feeling better and no new symptoms, today patient was seen neurologist, waiting for the MRI results andfurther recommendation flow, continue to hydrate the patient and monitor blood sugar, will have PT OT evaluate the patient (2) Hyperlipidemia: Qualifiers: Hyperlipidemia type: unspecified Qualified Code(s): E78.5 - Hyperlipidemia, unspecified Code(s): E78.5 - Hyperlipidemia, unspecified Status: Chronic Assessment and Plan: Continue with atorvastatin once the patient's anion gap is closed and she can we. (3) Diabetic neuropathy: Code(s): E11.40 - Type 2 diabetes mellitus with diabetic neuropathy, unspecified Status: Chronic Assessment and Plan: Patient is on duloxetine. And gabapentin (4) Depression: Code(s): F32.9 - Major depressive disorder, single episode, unspecified Status: Chronic Assessment and Plan: continue with duloxetine. (5) Congestive heart failure: Code(s): I50.9 - Heart failure, unspecified Status: Chronic Assessment and Plan: The patient is on Coreg and losartan. (6) Headache: Qualifiers: Headache type: unspecified Code(s): R51 - Headache Status: Acute Assessment and Plan: She was given Tylenol we can give her Toradol as well if need be. plan is above (7) History of cerebellar stroke: Code(s): Z86.73 - Personal history of transient ischemic attack (TIA), and cerebral infarction without residual deficits Status: Chronic Assessment and Plan: Continue bladder and atorvastatin. Subjective Date/time seen: 05/04/20 15:22 patient is 64-year-old female with history of type 1 diabetes since age of 17 patient states that she developed headache, severe throbbing with photophobia an
[2020-05-04 17:40] LABS: Glucose Point of Care 329 (65-105)
[2020-05-04] MEDS: INSULIN GLARGINE (*BKC) 100 UNITS/ML 30 UNITS SUB-Q (20:58)
[2020-05-04 21:29] VITALS: BP 114/45; PULSE 79; RESP 16; TEMP 36.8; O2SAT 95
[2020-05-04 21:44] VITALS: BP 122/62
[2020-05-04 21:46] VITALS: PULSE 79
[2020-05-04 22:16] LABS: Glucose Point of Care 274 (65-105)
[2020-05-05 06:00] VITALS: BP 116/52; PULSE 70; RESP 16; TEMP 36.8; O2SAT 96
[2020-05-05 06:07] LABS: Hematocrit 37.2 % (37.0-47.0); Hemoglobin 12.4 g/dL (12.0-15.0); Mean Corpuscular HGB Conc 33.3 g/dl (32-36); Mean Platelet Volume 10.8 fl (7.4-10.4); Platelet Count Result 194 k/mm3 (150-375); Red Cell Distribution Width 12.4 % (11.5-14.5); White Blood Count 5.2 K/mm3 (4.5-10.0)
[2020-05-05 06:34] LABS: Anion Gap 1 mmol/L (8-16); Blood Urea Nitrogen 6 mg/dL (7-17); Calcium 9.6 mg/dL (8.4-10.2); Carbon Dioxide 35 mmol/L (22-30); Chloride 105 mmol/L (98-107); Estimated CRCL calculation 93 ml/min; Estimated Glomerular Filt Rate > 60; Glucose 135 mg/dL (65-105); Potassium 3.5 mmol/L (3.4-5.0); Sodium 141 mmol/L (137-145)
[2020-05-05] MEDS: GABAPENTIN 300 MG CAPSULE 600 MG PO (06:34)
[2020-05-05 07:48] LABS: Glucose Point of Care 114 (65-105)
[2020-05-05 08:46] VITALS: PULSE 70
[2020-05-05] MEDS: carvediloL 3.125 MG TABLET PO (08:46)
[2020-05-05] MEDS: LOSARTAN POTASSIUM 25 MG TABLET PO (08:46)
[2020-05-05] MEDS: DULoxetine HCL 60 MG CAPSULE.DR PO (08:46)
[2020-05-05] MEDS: ATORVASTATIN 40 MG TABLET 80 MG PO (08:46)
[2020-05-05] MEDS: CLOPIDOGREL BISULFATE 75 MG TABLET PO (08:46)
[2020-05-05] MEDS: ACETAMINOPHEN 325 MG TABLET 650 MG PO (08:50)
--- NOTE | 2020-05-05 09:14 | WPDNEUROPN ---
Progress Note: A&P Assessment and Plan (1) Depression: Code(s): F32.9 - Major depressive disorder, single episode, unspecified Status: Chronic (2) Diabetic neuropathy: Code(s): E11.40 - Type 2 diabetes mellitus with diabetic neuropathy, unspecified Status: Chronic (3) History of cerebellar stroke: Code(s): Z86.73 - Personal history of transient ischemic attack (TIA), and cerebral infarction without residual deficits Status: Chronic Additional Plan considering the cerebellar stroke if she has not had the rehab therapy in the past she might benefit with her gait dysfunction could very well be complicated by the cerebellar ataxia along with the diabetic neuropathy Review of Systems Review of Systems: All systems reviewed & are unremarkable except as noted in HPI and below Exam Narrative: Exam Narrative: on examination awake alert in no obvious acute distress ear nose throat examination normal eyes normal neck is supple with no cervical bruit no thyromegaly no lymphadenopathy no restricted range of motion heart regular with no murmur lungs clear to auscultation abdomen is soft with no organomegaly neurological examination reveals her to be awake alert cooperative his speech nor dysphasic no dysarthric nor dysphonic pupils round regular feels the vision full extraocular motors full paced symmetrical tongue midline uvula midline motor examination revealed her to have no drift but she had difficulties in ambulation with ataxia and dysmetria Objective Data Vital Signs Vital Signs: Vital Signs - 24 hr 05/04/20 14:00 05/04/20 21:29 05/04/20 21:44 Temperature 37.0 C 36.8 C Pulse Rate 81 79 Respiratory Rate 14 16 Blood Pressure 100/44 L 114/45 L 122/62 Pulse Oximetry 97 95 05/04/20 21:46 05/05/20 06:00 05/05/20 08:46 Temperature 36.8 C Pulse Rate 79 70 70 Respiratory Rate 16 Blood Pressure 116/52 L Pulse Oximetry 96 Intake/Output Intake/Output: Intake & Output 05/02/20 05/03/20 05/04/20 05/05/20 23:59 23:59 23:59 23:59 Intake Total 4391 1240 1980 300 Output Total 1400 0 700 Balance 2991 1240 1280 300 Meds/Results Medications: Active Medications Generic Name Dose Route Start Last Admin Trade Name Freq PRN Reason Stop Dose Admin Acetaminophen 650 mg 05/02/20 14:46 05/05/20 08:50 Tylenol Tablet PO 650 mg Q4H PRN Administration Headache Atorvastatin Calcium 80 mg 05/03/20 09:00 05/05/20 08:46 Lipitor PO 80 mg DAILY CHRIS Administration Carvedilol 3.125 mg 05/02/20 21:00 05/05/20 08:46 Coreg PO 3.125 mg Q12HR CHRIS Administration Clopidogrel Bisulfate 75 mg 05/03/20 09:00 05/05/20 08:46 Plavix PO 75 mg DAILY CHRIS Administration Dextrose 12.5 gm 05/02/20 21:14 Dextrose 50% Syringe IV PUSH PRN PRN Hypoglycemia Protocol Duloxetine HCl 60 mg 05/03/20 09:00 05/05/20 08:46 Cymbalta PO 60 mg DAILY CHRIS Administration Gabapentin 600 mg 05/02/20 22:00 05/05/20 06:34 Neurontin PO 600 mg Q8HR CHRIS Administration Glucagon 1 mg 05/02/20 21:14 Glucagon For Inj IM PRN PRN Hypoglycemia Protocol Glucose 15 gm 05/02/20 21:14 Glutose 15 PO PRN PRN Hypoglycemia Protocol Dextrose 1,000 mls @ 100 mls/hr 05/02/20 21:14 Dextrose 5% 1,000 Ml IVPB PRN PRN Hypoglycemia Protocol Insulin Aspart 4 - 8 units 05/03/20 08:00 05/05/20 08:45 Novolog SUB-Q Not Given [facility] Protocol Insulin Glargine 30 units 05/03/20 21:00 05/04/20 20:58 Lantus SUB-Q 30 units HS CHRIS Administration Losartan Potassium 25 mg 05/03/20 09:00 05/05/20 08:46 Cozaar PO 25 mg DAILY CHRIS Administration Ondansetron HCl 4 mg 05/02/20 14:46 05/02/20 21:30 Zofran Inj IV PUSH 4 mg Q6H PRN Administration Nausea And Vomiting Radiology Results: ITS Impressions Head CT 05/02/20 09:32 IMPRESSION: 1. Old in
--- NOTE | 2020-05-05 11:23 | PCDIET ---
Nutriton consult for DKA, patient has been educated see Nutritional Teaching Interventions. No further nutritional interventions needed at this time.
[2020-05-05 11:33] LABS: Glucose Point of Care 307 (65-105)
--- NOTE | 2020-05-05 11:33 | PM.DS ---
DS: Admitting Diagnosis Admitting Diagnosis Admitting Diagnosis: dka DS: Discharge Diagnosis Discharge Diagnosis (1) DKA (diabetic ketoacidoses): Qualifiers: Diabetes mellitus complication detail: without coma Diabetes mellitus type: other specified (including RICHY) Qualified Code(s): E13.10 - Other specified diabetes mellitus with ketoacidosis without coma Code(s): E11.10 - Type 2 diabetes mellitus with ketoacidosis without coma Status: Acute Assessment and Plan: patient's anion gap is closing it is now 15. She is on the DKA protocol. She received 3 L of fluid in the emergency room. A1c is 9.7 resume Lantus and do sliding scale insulin once the patient is off of the insulin drip. Patient has leukocytosis but most likely it is stress related. ceramics instructor when able. 05/04/20 15:22 patient is 64-year-old female with history of type 1 diabetes since age of 17 patient states that she developed headache, severe throbbing with photophobia and nausea, patient also felt dehydrated and was tried to adjust her blood sugar with long-acting insulin however her blood sugar were rising and were not able to manage with long-acting insulin and sliding scale, patient presented emergency department and was found to have DKA with elevated anion gap and was quite dehydrated patient was given 3 L of bolus in the emergency department did improve her initial anion gap it was elevated with blood sugar 476, patient was started on insulin drip per DKA protocol and IV fluid and admitted to ICU which did bring blood sugar as well as her anion close to normal, today patient was transferred out of ICU, and she is now on her long-acting insulin as well as sliding scale, in terms of headache patient states though her CT scan of the brain is negative for any acute injury which showed patient with chronic cerebellar stroke, patient further states that her symptoms are similar to her last stroke with headache and later MRI showed the patient had a stroke, currently patient still complains of head and photophobia, patient denies any upper or lower extremity weakness or difficulty with speech, Today 05/04 Patient had an MRI of the brain, results are pending, Patient stats feeling better and no new symptoms, today patient was seen neurologist, waiting for the MRI results andfurther recommendation flow, continue to hydrate the patient and monitor blood sugar, will have PT OT evaluate the patient (2) Hyperlipidemia: Qualifiers: Hyperlipidemia type: unspecified Qualified Code(s): E78.5 - Hyperlipidemia, unspecified Code(s): E78.5 - Hyperlipidemia, unspecified Status: Chronic Assessment and Plan: Continue with atorvastatin once the patient's anion gap is closed and she can we. (3) Diabetic neuropathy: Code(s): E11.40 - Type 2 diabetes mellitus with diabetic neuropathy, unspecified Status: Chronic Assessment and Plan: Patient is on duloxetine. And gabapentin (4) Depression: Code(s): F32.9 - Major depressive disorder, single episode, unspecified Status: Chronic Assessment and Plan: continue with duloxetine. (5) Congestive heart failure: Code(s): I50.9 - Heart failure, unspecified Status: Chronic Assessment and Plan: The patient is on Coreg and losartan. (6) Headache: Qualifiers: Headache type: unspecified Code(s): R51 - Headache Status: Acute Assessment and Plan: She was given Tylenol we can give her Toradol as well if need be. plan is above (7) History of cerebellar stroke: Code(s): Z86.73 - Personal history of transient ischemic attack (TIA), and cerebral infarction without residual deficits Status: Chronic Assessment and Plan: Continue bladder and atorvastatin. DS: Summary Hospital Course Reason for hospitalization: Chief complaint: dka Narrative: Gregoria Figueroa is a 64 year old
[2020-05-05] MEDS: INSULIN ASPART (*BKC) 100 UNITS/ML SUB-Q (11:55)
== END 2020-05-05 12:33 | disposition home or self-care (01) | DRG 639 ==
LOC: ANHED 12:50 → ANHICU 15:31 → ANH2MED 05-04 18:09 → ANHICU 05-06 16:14
PROVIDERS: Internal Medicine; Admitting Provider Internal Medicine; Emergency Provider Emergency Medicine; PCP Nurse Practitioner Adult Health; Visit Provider Family Medicine
DX: E10.10 Type 1 diabetes mellitus with ketoacidosis without coma (principal); Z86.73 Personal history of transient ischemic attack (TIA), and cerebral infarction without residual deficits; E78.5 Hyperlipidemia, unspecified; Z79.4 Long term (current) use of insulin; F32.9 Major depressive disorder, single episode, unspecified; I50.9 Heart failure, unspecified
CPT/HCPCS: 36415; 36600; 70450; 70553; 71046; 80048; 81001; 82375; 82805; 83036; 83050; 83735; 84100; 85025; 85027; 93005; 96361; 96374; 96375; 97161; 99285; A9270; A9577; J0696; J1200; J1815; J2405; J2765; J3480; J7030; J7120

== ENCOUNTER 2020-08-21 07:54 | Outpatient (CLI) | payer OTHER, SELFPAY ==
[2020-08-21 08:35] LABS: Alanine Aminotransferase 18 U/L (4-35); Albumin Level 3.9 g/dL (3.5-5.1); Alkaline Phosphatase 73 U/L (38-126); Anion Gap 1 mmol/L (8-16); Aspartate Amino Transferase 30 U/L (14-36); Bilirubin,Total 0.4 mg/dL (0.2-1.3); Blood Urea Nitrogen 17 mg/dL (7-17); Calcium 9.9 mg/dL (8.4-10.2); Carbon Dioxide 32 mmol/L (22-30); Chloride 104 mmol/L (98-107); Cholesterol 113 mg/dL (0-200); Estimated Glomerular Filt Rate > 60; Glucose 173 mg/dL (65-105); HDL Direct 48 mg/dL; Potassium 4.3 mmol/L (3.4-5.0); Sodium 137 mmol/L (137-145); Triglycerides 67 mg/dL (<150)
[2020-08-21 08:36] LABS: Hemoglobin A1C 8.4 % (<5.7)
[2020-08-21 08:46] LABS: LDL Cholesterol Direct 39 mg/dL
[2020-08-21 09:26] LABS: Free T4 Free Thyroxine 1.01 ng/mL (0.78-2.19)
[2020-08-21 09:34] LABS: MALB Creatinine Ratio 14.4 mg/g (0-30); Microalbumin Urine Random 10.8 mg/L (0-16.7)
[2020-08-26 06:14] LABS: C-Peptide <0.10 ng/mL (0.80-3.85)
== END 2020-08-21 07:55 | disposition home or self-care (01) ==
PROVIDERS: PCP Nurse Practitioner Adult Health; Referring Provider Internal Medicine Endocrinology, Diabetes & Metabolism; Visit Provider Nurse Practitioner Adult Health
DX: E11.40 Type 2 diabetes mellitus with diabetic neuropathy, unspecified (principal); E78.5 Hyperlipidemia, unspecified
CPT/HCPCS: 36415; 80053; 80061; 82043; 82607; 83036; 84439; 84443; 84681

== ENCOUNTER 2020-10-21 13:00 | Outpatient (RCR) | payer OTHER, SELFPAY ==
[2020-09-30 14:16] VITALS: BMI 30.3
[2020-09-30 14:18] VITALS: BMI 30.3
== END 2020-12-15 10:30 | disposition home or self-care (01) ==
LOC: ANHDMC 13:00
PROVIDERS: PCP Nurse Practitioner Adult Health; Visit Provider Internal Medicine Endocrinology, Diabetes & Metabolism
DX: E11.65 Type 2 diabetes mellitus with hyperglycemia (principal); Z71.3 Dietary counseling and surveillance; Z71.89 Other specified counseling
CPT/HCPCS: 97802; G0108

== ENCOUNTER 2020-11-27 08:55 | Outpatient (CLI) | payer OTHER, SELFPAY ==
[2020-11-27 09:35] LABS: Hemoglobin A1C 7.2 % (<5.7)
[2020-11-27 09:37] LABS: Alanine Aminotransferase 27 U/L (4-35); Albumin Level 4.2 g/dL (3.5-5.1); Alkaline Phosphatase 76 U/L (38-126); Anion Gap 4 mmol/L (8-16); Aspartate Amino Transferase 42 U/L (14-36); Bilirubin,Total 0.3 mg/dL (0.2-1.3); Blood Urea Nitrogen 14 mg/dL (7-17); Calcium 10.2 mg/dL (8.4-10.2); Carbon Dioxide 32 mmol/L (22-30); Chloride 105 mmol/L (98-107); Cholesterol 134 mg/dL (0-200); Estimated Glomerular Filt Rate > 60; Glucose 152 mg/dL (65-105); HDL Direct 58 mg/dL; Potassium 4.5 mmol/L (3.4-5.0); Sodium 141 mmol/L (137-145); Triglycerides 74 mg/dL (<150)
[2020-11-27 09:48] LABS: LDL Cholesterol Direct 51 mg/dL
[2020-11-27 09:56] LABS: Creatinine Urine 172.9 mg/dL
[2020-11-27 10:02] LABS: MALB Creatinine Ratio 12.6 mg/g (0-30); Microalbumin Urine Random 21.8 mg/L (0-16.7)
[2020-11-27 10:55] LABS: Free T4 Free Thyroxine Reflex 1.06 ng/dL (0.78-2.19)
[2020-11-27 12:02] LABS: Total Triiodothyronine (T3) 1.31 NG/ML (0.97-1.69)
== END 2020-11-27 08:56 | disposition home or self-care (01) ==
LOC: ANHLAB 08:57
PROVIDERS: PCP Nurse Practitioner Adult Health; Visit Provider Internal Medicine Endocrinology, Diabetes & Metabolism
DX: E10.65 Type 1 diabetes mellitus with hyperglycemia (principal); E78.5 Hyperlipidemia, unspecified
CPT/HCPCS: 36415; 80053; 80061; 82043; 83036; 84439; 84443; 84480

== ENCOUNTER 2021-01-27 09:13 | Outpatient (RCR) | payer OTHER, SELFPAY | END 2021-01-27 13:19 | disposition home or self-care (01) | LOC: ANHDMC 09:13 | PROVIDERS: PCP Nurse Practitioner Adult Health; Visit Provider Internal Medicine Endocrinology, Diabetes & Metabolism | DX: E11.65 Type 2 diabetes mellitus with hyperglycemia (principal); Z71.89 Other specified counseling | CPT/HCPCS: G0108 ==

== ENCOUNTER 2021-02-16 08:15 | Outpatient (CLI) | payer OTHER, SELFPAY ==
[2021-02-16 08:50] LABS: Cholesterol 132 mg/dL (0-200); HDL Direct 65 mg/dL; Triglycerides 72 mg/dL (<150)
[2021-02-16 08:53] LABS: Hemoglobin A1C 7.3 % (<5.7)
[2021-02-16 09:01] LABS: LDL Cholesterol Direct 43 mg/dL
[2021-02-16 13:14] LABS: Alanine Aminotransferase 31 U/L (4-35); Alkaline Phosphatase 70 U/L (38-126); Anion Gap 9 mmol/L (8-16); Aspartate Amino Transferase 43 U/L (14-36); Bilirubin,Total 0.4 mg/dL (0.2-1.3); Blood Urea Nitrogen 20 mg/dL (7-17); Calcium 11.1 mg/dL (8.4-10.2); Carbon Dioxide 25 mmol/L (22-30); Chloride 104 mmol/L (98-107); Estimated Glomerular Filt Rate > 60; Glucose 132 mg/dL (65-105); Potassium 4.7 mmol/L (3.4-5.0); Sodium 138 mmol/L (137-145)
== END 2021-02-16 08:16 | disposition home or self-care (01) ==
LOC: ANHLAB 08:17
PROVIDERS: PCP Nurse Practitioner Adult Health; Visit Provider Internal Medicine Endocrinology, Diabetes & Metabolism
DX: E10.9 Type 1 diabetes mellitus without complications (principal); E78.5 Hyperlipidemia, unspecified
CPT/HCPCS: 36415; 80053; 80061; 83036; 84439; 84443

== ENCOUNTER 2021-12-04 13:47 | Outpatient (CLI) | payer MEDICARE, SELFPAY ==
--- NOTE | ~2021-12-04 | MM_ITS ---
EXAMINATION: MM screening [facility] w [facility] HISTORY: Screening TECHNIQUE: Craniocaudal and mediolateral oblique 3-D tomosynthesis images were obtained and synthetic 2-D images were generated. CAD analysis was submitted and interpreted. COMPARISON: No prior mammogram is available for comparison at this institution. BREAST PARENCHYMAL COMPOSITION: There are scattered areas of fibroglandular density. FINDINGS: There are benign bilateral breast calcifications. There is no evidence of suspicious mass, calcification, or architectural distortion to suggest malignancy in either breast. There has been no suspicious interval change. IMPRESSION: 1. No mammographic evidence of malignancy. 2. Recommend routine screening mammography in one year. BI-RADS Category 2: Benign finding(s). Reviewed, dictated and finalized at location A.
--- NOTE | ~2021-12-04 | DEXA_ITS ---
Bone Density Report Name: DEBBIE IRELAND Age: 66 Sex: Female Ethnicity: White Date of : 1955 Indication: postmenopausal; screening for osteoporosis; hysterectomy; Referring Provider: ANTONIO LORENZO Study: Bone densitometry was performed. Exam Date: December 04, 2021 Accession number: [id number] Bone Density: Region BMD T-score Z-score Classification AP Spine(L1, L4) 1.037 0.0 1.7 Normal Femoral Neck (Left) 0.661 -1.7 -0.2 Osteopenia Total Hip (Left) 0.807 -1.1 0.1 Osteopenia Femoral Neck (Right) 0.699 -1.3 0.1 Osteopenia Total Hip (Right) 0.843 -0.8 0.4 Normal Total Hip Mean 0.825 -1.0 0.3 Normal World Health Organization criteria for BMD impression classify patients as: Normal (T-score at or above -1.0), Osteopenia (T-score between -1.0 and -2.5), or Osteoporosis (T-score at or below -2.5). 10-year Fracture Risk(1): Major Osteoporotic Fracture 9.0% Hip Fracture 1.0% Reported Risk Factors: [place] (), Neck BMD=0.661, BMI=28.0 (1) FRAX(R) Version 3.08. Fracture probability calculated for an untreated patient. Fracture probability may be lower if the patient has received treatment. Clinical Information Provided by Patient: Has used the following medications: Vitamin D Has the following medical conditions: Hysterectomy Patient maximum height was 63 Menopause Age: 47 No regular weight bearing exercise Drinks caffeinated beverages Onset of menses at age 14 Number of children 1 Impression: The patient has low bone mass, based on the Left Femoral Neck T-score. The patient has an estimated ten-year risk of hip fracture of 1% and an estimated ten-year risk of major fracture of 9%, based on the WHO FRAX algorithm. Discussion: BONE DENSITY IS LOW AT ONE OR MORE SKELETAL SITES. This patient's lowest T-score is low at one or more skeletal sites. It meets the World Health Organization's (WHO) criteria for ?low bone mass? (T-score between -1.0 and -2.5). The patient's 10-year risk of fracture as calculated by FRAX is less than the threshold where pharmacological therapy is recommended by the National Osteoporosis Foundation (NOF). However, all treatment decisions require clinical judgment and consideration of individual patient factors, including patient preferences, comorbidities, previous drug use, risk factors not captured in the FRAX model (e.g., frailty, falls, vitamin D deficiency, increased bone turnover, interval significant decline in bone density) and possible under or overestimation of fracture risk by FRAX. The patient should follow a healthful lifestyle (good nutrition with adequate calcium and vitamin D, and appropriate weight-bearing exercise). Follow-Up: Consider repeating this study in 2 to 3 years to reassess this patient's status, or sooner if there is some new
== END 2021-12-04 13:48 | disposition home or self-care (01) ==
PROVIDERS: PCP Nurse Practitioner Adult Health; Referring Provider Internal Medicine Endocrinology, Diabetes & Metabolism; Visit Provider Nurse Practitioner Adult Health
DX: Z12.31 Encounter for screening mammogram for malignant neoplasm of breast (principal); Z78.0 Asymptomatic menopausal state; M85.852 Other specified disorders of bone density and structure, left thigh; M85.851 Other specified disorders of bone density and structure, right thigh
CPT/HCPCS: 77063; 77067; 77080

== ENCOUNTER 2023-06-29 10:31 | Outpatient (CLI) | payer MEDICARE, SELFPAY ==
[2023-06-29 19:19] LABS: Free T4 Free Thyroxine 1.28 ng/mL (0.78-2.19)
== END 2023-06-29 10:32 | disposition home or self-care (01) ==
LOC: ANHWCLAB 10:32
PROVIDERS: PCP Nurse Practitioner Family; Visit Provider Internal Medicine
DX: E10.65 Type 1 diabetes mellitus with hyperglycemia (principal)
CPT/HCPCS: 36415; 84439; 84443

== ENCOUNTER 2023-10-17 09:07 | Outpatient (CLI) | payer MEDICARE, SELFPAY ==
[2023-10-17 13:03] LABS: Basophils Absolute Auto 0.1 K/mm3 (0.0-0.1); Basophils Percent Auto 0.7 % (0.2-1.2); Eosinophils Absolute Auto 0.4 K/mm3 (0-0.3); Hematocrit 46.3 % (37.0-47.0); Hemoglobin 14.2 g/dL (12.0-15.0); Immature Granulocyte Absolute 0.02 K/mm3 (0.00-0.031); Immature Granulocyte Percent A 0.3 % (0-0.5); Lymphocytes Absolute Auto 1.41 K/mm3 (0.9-3.2); Lymphocytes Percent Auto 18.4 % (18.3-44.2); Mean Corpuscular HGB Conc 30.7 g/dl (32-36); Mean Corpuscular Volume 97.7 fl (80-100); Mean Platelet Volume 11.5 fl (7.4-10.4); Monocytes Absolute Auto 0.5 K/mm3 (0.1-0.6); Monocytes Percent Auto 6.1 % (2.6-8.5); Neutrophils Absolute Auto 5.3 K/mm3 (1.3-6.7); Neutrophils Percent Auto 69.5 % (45.5-73.1); Platelet Count Result 237 k/mm3 (150-375); Red Blood Count 4.74 M/mm3 (4.2-5.4); Red Cell Distribution Width 13.5 % (11.5-14.5); White Blood Count 7.7 K/mm3 (4.5-10.0)
[2023-10-17 13:44] LABS: Vitamin D 25 Hydroxy 29.3 ng/mL
[2023-10-17 14:32] LABS: Alanine Aminotransferase 26 U/L (6-35); Alkaline Phosphatase 100 U/L (38-126); Anion Gap 4 mmol/L (8-16); Aspartate Amino Transferase 79 U/L (14-36); Bilirubin,Total 0.5 mg/dL (0.2-1.3); Blood Urea Nitrogen 19 mg/dL (7-17); Calcium 10.4 mg/dL (8.4-10.2); Carbon Dioxide 29 mmol/L (22-30); Chloride 106 mmol/L (98-107); Cholesterol 133 mg/dL (0-200); Estimated Glomerular Filt Rate > 60; Glucose 184 mg/dL (65-110); HDL Direct 67 mg/dL; Potassium 4.1 mmol/L (3.4-5.0); Sodium 139 mmol/L (137-145); Triglycerides 71 mg/dL (<150)
[2023-10-17 14:43] LABS: LDL Cholesterol Direct 48 mg/dL
[2023-10-17 15:02] LABS: Creatinine Urine 183.9 mg/dL
[2023-10-17 15:07] LABS: MALB Creatinine Ratio 27.6 mg/g (0-30); Microalbumin Urine Random 50.7 mg/L (0-16.7)
== END 2023-10-17 09:08 | disposition home or self-care (01) ==
PROVIDERS: PCP Nurse Practitioner Family; Visit Provider Nurse Practitioner Family
DX: E03.9 Hypothyroidism, unspecified (principal); E78.5 Hyperlipidemia, unspecified; M85.80 Other specified disorders of bone density and structure, unspecified site; E13.10 Other specified diabetes mellitus with ketoacidosis without coma
CPT/HCPCS: 36415; 80053; 80061; 82043; 82306; 82607; 84443; 85025

== ENCOUNTER 2024-01-13 08:59 | Outpatient (CLI) | payer MEDICARE, SELFPAY ==
[2024-01-13 11:03] LABS: Magnesium 1.9 mg/dL (1.6-2.3); Phosphorus 3.2 mg/dL (2.5-4.5)
[2024-01-13 11:46] LABS: Parathyroid Intact 116.5 pg/mL (7.5-53.5)
[2024-01-13 11:57] LABS: Vitamin D 25 Hydroxy 56.2 ng/mL
[2024-01-14 15:24] LABS: Ionized Calcium 5.5 mg/dL (4.7-5.5)
== END 2024-01-13 09:00 | disposition home or self-care (01) ==
LOC: ANHLAB 09:03
PROVIDERS: PCP Nurse Practitioner Family; Visit Provider Internal Medicine
DX: E03.9 Hypothyroidism, unspecified (principal); E83.52 Hypercalcemia
CPT/HCPCS: 36415; 82306; 82330; 83735; 83970; 84100

== ENCOUNTER 2024-01-16 08:31 | Outpatient (CLI) | payer MEDICARE, SELFPAY ==
[2024-01-16 10:36] LABS: Total Volume 24 Hour Urine 2300 ml
[2024-01-16 10:45] LABS: Creatinine 24 Hour Urine 0.8 gm/24 (0.8-1.8); Creatinine Urine 36.4 mg/dL
== END 2024-01-16 08:32 | disposition home or self-care (01) ==
LOC: ANHLAB 08:33
PROVIDERS: PCP Nurse Practitioner Family; Visit Provider Internal Medicine
DX: E03.9 Hypothyroidism, unspecified (principal); E83.52 Hypercalcemia
CPT/HCPCS: 81050; 82340; 82570

== ENCOUNTER 2024-06-27 19:14 | Emergency (ER) | payer MEDICARE, SELFPAY ==
--- NOTE | ~2024-06-27 | XR_ITS ---
EXAMINATION: XR chest 2V DATE: 06/27/2024 19:40 INDICATION: Chest pain. TECHNIQUE: Frontal and lateral views of the chest were obtained. COMPARISON: Chest 2 views 05/02/2020 FINDINGS: There is no pneumonia, pleural effusion, or pneumothorax. The heart size is normal. IMPRESSION: 1. No acute cardiopulmonary disease. Reviewed, dictated and finalized at location A. RTRICHOLOGIST
--- NOTE | 2024-06-27 19:14 | ECG_ITS ---
Test Date: 2024-06-27 19:19:57 Measurements Intervals [place] Rate: 90 P: 51 MI: 192 QRS: -21 QRSD: 73 T: 31 QT: 339 QTc: 415 Interpretive Statements SINUS RHYTHM POSSIBLE RIGHT VENTRICULAR CONDUCTION DELAY LOW QRS VOLTAGE IN PRECORDIAL LEADS CONSIDER ANTERIOR INFARCT, AGE INDETERMINATE INFERIOR INFARCT, AGE INDETERMINATE BASELINE ARTIFACT- I, II, AVR ABNORMAL ECG No previous ECG available for comparison Electronically Signed On 06-27-2024 20:22:23 [employer] ARCHITECT by Paolo hAmadi D.O.
[2024-06-27 19:47] LABS: Basophils Absolute Auto 0.1 K/mm3 (0.0-0.1); Basophils Percent Auto 0.7 % (0.2-1.2); Eosinophils Absolute Auto 0.2 K/mm3 (0-0.3); Eosinophils Percent Auto 1.5 % (0-4.4); Hematocrit 45.2 % (37.0-47.0); Hemoglobin 14.8 g/dL (12.0-15.0); Immature Granulocyte Absolute 0.02 K/mm3 (0.00-0.031); Immature Granulocyte Percent A 0.2 % (0-0.5); Lymphocytes Absolute Auto 1.48 K/mm3 (0.9-3.2); Lymphocytes Percent Auto 13.9 % (18.3-44.2); Mean Corpuscular HGB Conc 32.7 g/dl (32-36); Mean Corpuscular Hemoglobin 30.8 pg (26-34); Mean Corpuscular Volume 94.2 fl (80-100); Mean Platelet Volume 10.8 fl (7.4-10.4); Monocytes Absolute Auto 0.6 K/mm3 (0.1-0.6); Monocytes Percent Auto 5.2 % (2.6-8.5); Neutrophils Absolute Auto 8.3 K/mm3 (1.3-6.7); Neutrophils Percent Auto 78.5 % (45.5-73.1); Platelet Count Result 240 k/mm3 (150-375); White Blood Count 10.6 K/mm3 (4.5-10.0)
[2024-06-27 19:59] LABS: Alanine Aminotransferase 28 U/L (6-35); Albumin Level 4.3 g/dL (3.5-5.1); Alkaline Phosphatase 102 U/L (38-126); Anion Gap 5 mmol/L (4-12); Aspartate Amino Transferase 35 U/L (14-36); Bilirubin,Total 0.6 mg/dL (0.2-1.3); Blood Urea Nitrogen 22 mg/dL (7-17); Calcium 10.6 mg/dL (8.4-10.2); Carbon Dioxide 31 mmol/L (22-30); Chloride 99 mmol/L (98-107); Estimated Glomerular Filt Rate > 60; Glucose 432 mg/dL (65-110); Lipase 25 U/L (23-300); Potassium 4.2 mmol/L (3.4-5.0); Sodium 135 mmol/L (137-145)
[2024-06-27 20:10] LABS: INR 0.9; Prothrombin Time 12.5 Seconds (11.1-14.7)
[2024-06-27 20:11] LABS: Troponin I < 0.012 ng/mL (0.000-0.034)
--- NOTE | 2024-06-27 22:16 | ECG_ITS ---
Test Date: 2024-06-27 22:48:12 Measurements Intervals [place] Rate: 81 P: 31 VT: 199 QRS: -15 QRSD: 81 T: 54 QT: 371 QTc: 432 Interpretive Statements SINUS RHYTHM POSSIBLE RIGHT VENTRICULAR CONDUCTION DELAY BORDERLINE ST ABNORMALITY- ANTERIOR LEADS BASELINE ARTIFACT- I, III, AVR, AVL, AVF BORDERLINE ECG Myocardial infarct finding no longer present Electronically Signed On 06-28-2024 05:22:46 [employer] DEVELOPER by Paolo Ahmadi D.O.
[2024-06-27 22:41] VITALS: O2SAT 95
[2024-06-27 22:54] LABS: Troponin I < 0.012 ng/mL (0.000-0.034)
[2024-06-27 23:00] VITALS: BP 153/61; PULSE 79; RESP 16; O2SAT 94
--- NOTE | 2024-06-27 23:36 | ED_ITS ---
HPI - Chest Pain General Chief Complaint: Chest Pain Stated Complaint: chest pain Time Seen by Provider: 06/27/24 23:05 Source: patient Mode of arrival: ambulatory Limitations: no limitations History of Present Illness HPI narrative: This is a 68-year-old female with PMH of DM type 1, takotsubo cardiomyopathy, HTN who presents to the ED for chief complaint of midsternal chest pain this started about an hour prior to arrival. Describes it as a burning pain. It came on about 1-2 hours after eating this evening. Denies radiation of pain. Denies associated nausea, vomiting, syncope. Denies exertional component to pain. States that she is under a lot of stress with her mom going on hospice recently. Denies shortness of breath, cough, recent illness, fevers, chills, back pain. States that it is starting to subside Related Data Home Medications Medication Instructions Recorded Confirmed aspirin 81 mg tablet,delayed 81 mg PO DAILY 06/29/23 08/17/23 release (Adult Low Dose Aspirin) bimatoprost 0.01 % eye drops 1 drp EACH EYE DAILY 08/17/23 08/17/23 (Atuligan) blood-glucose sensor (Dexcom G6 08/17/23 08/17/23 Sensor device) fluticasone furoate 50 inhalation PRN 08/17/23 08/17/23 mcg/actuation blister powder for inhalation Allergies Allergy/AdvReac Type Severity Reaction Status Date / Time lisinopril AdvReac Mild Cough Verified 05/17/24 09:11 Review of Systems Review of Systems: All systems as dictated in HPI [facility] Past Medical History Medical History Broken heart syndrome Closed left tibial fracture Congestive heart failure diastolic dysfunction Depression Diabetes type 1, uncontrolled A1c 9.7 Diabetic neuropathy Diabetic retinopathy Hyperlipidemia Surgical History Surgical History H/O bilateral cataract extraction H/O right breast biopsy History of section, classical x1 S/p bilateral carpal tunnel release Family History Family History Father Cerebrovascular accident, Onset Age: 58 Family history of chronic obstructive pulmonary disease Family history of diabetes mellitus in first degree relative Family history of congestive heart failure Patient's father is Mother Carcinoma of colon Family history of diabetes mellitus in first degree relative Family history of coronary artery disease Family history of heart disease in male family member before age 55 Grandparent Thyroid disorder Other Diabetes mellitus Family history of arthritis Family history of malignant neoplasm Social History Social History Social History: she is to Carloz Fajardo . he is the durable power employment attorney for healthcare. She is a full code. She is lifelong nonsmoker. She is socially drinks but only rarely. She has 1 son. She is retired from [employer]. She does not use marijuana or any off drugs. 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 HEAD: Normocephalic, atraumatic. EYES: PERRLA and EOMI. ENT: Nares clear, no rhinorrhea or epistaxis. Mucous membranes moist. Oropharynx without tonsillar hypertrophy exudate or other lesions. NECK: Supple. No adenopathy or masses. CHEST: No respiratory distress. Clear to auscultation. No wheezes rales or rhonchi HEART: Regular rate and rhythm. No murmur heard. Normal peripheral pulses. ABDOMEN: Soft, nontender, nondistended, normal active bowel sounds. MSK: Normal range of motion. No edema. SKIN: Warm, dry, no rash. NEURO: Alert and oriented x4. No focal deficits. PSYCH: Normal mood and affect. Course Reevaluation(s) Reevaluation #1: Re-evaluated after the GI cocktail. She is feeling slightly better overall and feels ready to go home at this point. Date: 06/28/24 Time: 00:21 Vital Signs Vital signs: Vital Signs Pulse Oximetry 95 06/27/24 22:41 Oxygen Delivery Room Air 06/27/24 22:41 Pulse Rate 81 06/28/24 00:20 Respiratory Rate 14 06/28/24 00:20 Blood Pressure 160/69 H 06/28/24 00:20 Pulse Oximetry 100 06/28/24 00:20 Oxygen Delivery Room Air 06/27/24 22:41 MDM - Chest Pain MDM Narrative Medical decision making narrative: This is a 68-year-old female who presents to the ED for chief complaint of chest pain beginning earlier today. Vitals are normal. Exam is remarkable for the above. The pain appears to be in the subxiphoid region. EKG shows normal sinus rhythm CMP shows elevated blood sugar but otherwise unremarkable. Cbc unremarkable. Chest x-ray shows no acute findings. 0 and 3 hour troponins are normal. Heart score is 3. Did have some relief with GI cocktail. Suspect more of a gastritis/GERD today. On re-evaluation she feels ready to go home. Advised to take her medications as prescribed, especially with blood sugar being over 400. There is no evidence of DKA today. Patient will be discharged in stable condition. Supportive measures discussed and return precautions given. Patient is understanding and agreeable with plan for discharge with PCP follow-up. Lab Data 06/27/24 19:25 06/27/24 19:25 Labs: Lab Results 06/27/24 06/27/24 Range/Units 19:25 22:22 WBC 10.6 H (4.5-10.0) K/mm3 RBC 4.80 (4.2-5.4) M/mm3 Hgb 14.8 (12.0-15.0) g/dL Hct 45.2 (37.0-47.0) % MCV 94.2 (80-100) fl MCH 30.8 (26-34) pg MCHC 32.7 (32-36) g/dl RDW 13.0 (11.5-14.5) % Plt Count 240 (150-375) k/mm3 MPV 10.8 H (7.4-10.4) fl Immature Gran % (Auto) 0.2 (0-0.5) % Neut % (Auto) 78.5 H (45.5-73.1) % Lymph % (Auto) 13.9 L (18.3-44.2) % [place] % (Auto) 5.2 (2.6-8.5) % Eos % (Auto) 1.5 (0-4.4) % Baso % (Auto) 0.7 (0.2-1.2) % Lymph # (Auto) 1.48 (0.9-3.2) K/mm3 [place] # (Auto) 0.6 (0.1-0.6) K/mm3 Eos # (Auto) 0.2 (0-0.3) K/mm3 Baso # (Auto) 0.1 (0.0-0.1) K/mm3 Abs Immat Gran (auto) 0.02 (0.00-0.031) K/mm3 Absolute Neuts (auto) 8.3 H (1.3-6.7) K/mm3 Absolute Nucleated RBC 0.000 (0.0-0.012) K/mm3 Nucleated RBC % 0.0 (0.0-0.2) % PT 12.5 (11.1-14.7) Seconds INR 0.9 APTT 24.0 (22.3-36.8) Seconds Sodium 135 L (137-145) mmol/L Potassium 4.2 (3.4-5.0) mmol/L Chloride 99 (98-107) mmol/L Carbon Dioxide 31 H (22-30) mmol/L Anion Gap 5 (4-12) mmol/L BUN 22 H (7-17) mg/dL Creatinine 0.70 (0.7-1.0) mg/dL Estim Creat Clear Calc Not Reportable Estimated GFR > 60 (59 - ) Glucose 432 H (65-110) mg/dL Calcium 10.6 H (8.4-10.2) mg/dL Total Bilirubin 0.6 (0.2-1.3) mg/dL AST 35 (14-36) U/L ALT 28 (6-35) U/L Alkaline Phosphatase 102 (38-126) U/L Troponin I < 0.012 < 0.012 (0.000-0.034) ng/mL Total Protein 8.0 (6.3-8.2) g/dL Albumin 4.3 (3.5-5.1) g/dL Lipase 25 (23-300) U/L ECG Data EKG #1: ECG completion date: 06/27/24 ECG completion time: 19:19 Prior ECG tracings: not available for review Interpretation: Sinus rhythm Rate 90 Normal QRS Normal QTC No acute ischemic findings EKG #2: ECG completion date: 06/27/24 ECG completion time: 22:48 Prior ECG tracings: available for review Interpretation: Sinus rhythm Rate 81 Normal QRS Normal QTC Unchanged from previous ECG 3 hours ago No acute ischemia Discharge Plan Discharge Clinical Impression: Chest pain Patient Disposition: Home, Self-Care Condition: Stable Instructions: Antibiotic Form, Chest Pain (ED) Additional Instructions: Your exam and workup today is reassuring. You were seen for chest pain, however this may be more related to acid reflux or inflammation of the stomach. Please take Pepcid as prescribed and follow-up with PCP. If you have any new or worsening symptoms please return to the ER for further evaluation. Prescriptions: New famotidine [Pepcid] 40 mg tablet 40 mg PO DAILY Qty: 30 0RF No Action aspirin [Adult Low Dose Aspirin] 81 mg tablet,delayed release (DR/EC) 81 mg PO DAILY levothyroxine [Synthroid] 25 mcg tablet 25 mcg PO DAILY Qty: 90 0RF Glucagon Emergency Kit (human) 1 mg recon soln 1 mg subcut Q20M PRN (Reason: hypoglycemia) Qty: 1 0RF Rx Instructions: until target blood sugar attained fluticasone furoate 50 mcg/actuation blister with device inhalation PRN Lumigan 0.01 % drops 1 drp EACH EYE DAILY (DME) Dexcom G6 Sensor Device See Rx Instructions .Route Rx Instructions: As directed atorvastatin 80 mg tablet 80 mg PO DAILY Qty: 90 3RF duloxetine 60 mg capsule,delayed release(DR/EC) 60 mg PO DAILY Qty: 90 3RF losartan 25 mg tablet 25 mg PO DAILY Qty: 90 3RF (DME) Omnipod 5 G6 Intro Kit (Gen 5) Cartridge See Rx Instructions .Route Qty: 1 0RF Rx Instructions: As directed (DME) Omnipod 5 G6-G7 Pods (Gen 5) Cartridge See Rx Instructions .Route Qty: 30 0RF Rx Instructions: every 3 days (DME) Dexcom G7 Sensor Device See Rx Instructions .ROUTE .MEDSUPPLY Qty: 1 0RF Rx Instructions: every 10 days (DME) Dexcom G7 Oss Architect Misc See Rx Instructions .Route Qty: 1 0RF Rx Instructions: As directed (DME) Omnipod Dash Pods (Gen 4) Cartridge See Rx Instructions .ROUTE .COMPLEX Qty: 30 3RF Dose Instruction: CHANGE EVERY THIRD DAY Rx Instructions: CHANGE EVERY THIRD DAY insulin lispro [Humalog U-100 Insulin] 100 unit/mL solution See Rx Instructions .ROUTE .COMPLEX Qty: 40 3RF Dose Instruction: INJECT SUBCUTANEOUSLY DIRECTED PER SLIDING SCALE VIA INSULIN PUMP MAXIMUM DAILY DOSE: 50 UNITS Rx Instructions: INJECT SUBCUTANEOUSLY DIRECTED PER SLIDING SCALE VIA INSULIN PUMP MAXIMUM DAILY DOSE: 50 UNITS gabapentin 300 mg capsule See Rx Instructions .ROUTE .COMPLEX Qty: 360 2RF Dose Instruction: TAKE 2 CAPSULES BY MOUTH TWICE DAILY Rx Instructions: TAKE 2 CAPSULES BY MOUTH TWICE DAILY Follow-up/Referrals: Katie Rodríguez APRN [Primary Care Provider] - Time of Disposition: 00:22
[2024-06-28] MEDS: BELLADONNA ALK/PHENOB ELIX 10 ML, MAG HYDROX/ALUMINUM HYD/SIMETH 30 ML, LIDOCAINE HCL 2... PO (00:05)
[2024-06-28 00:20] VITALS: BP 160/69; PULSE 81; RESP 14; O2SAT 100
== END 2024-06-28 00:32 | disposition home or self-care (01) ==
PROVIDERS: Emergency Medicine; Emergency Provider Physician Assistant; PCP Nurse Practitioner Family
DX: R07.9 Chest pain, unspecified (principal); I50.9 Heart failure, unspecified; F32.A Depression, unspecified; E10.40 Type 1 diabetes mellitus with diabetic neuropathy, unspecified; E10.319 Type 1 diabetes mellitus with unspecified diabetic retinopathy without macular edema; E78.5 Hyperlipidemia, unspecified; R94.31 Abnormal electrocardiogram [ECG] [EKG]
CPT/HCPCS: 36415; 71046; 80053; 83690; 84484; 85025; 85610; 85730; 93005; 99284; A9270

== ENCOUNTER 2024-10-05 08:00 | Outpatient (RCR) | payer MEDICARE, SELFPAY ==
--- NOTE | 2024-09-05 09:31 | OPREHPOC ---
Outpatient Therapy Plan of Care This is a Multidisciplinary Plan of Care that may contain components documented by all disciplines (PT, OT, and ST.) PT Problem 1 PT Problem #1 Knowledge Deficit PT Goal 1 Goal / Goal Update *indep with HEP Target Visit 8 PT Problem 2 PT Problem #2 Impaired Strength PT Goal 1 Goal / Goal Update * increase strength of R and L LE's to improve dynamic balance and safety with activity: pt perform 20 reps of mat exercises Target Visit 8 PT Goal 2 Goal / Goal Update *single leg standing R and L x 10 seconds Target Visit 8 PT Problem 3 PT Problem #3 Impaired Functional Mobility PT Goal 1 Goal / Goal Update * improve Schultz balance score to 52/56, to improve balance Target Visit 8 PT Goal 2 Goal / Goal Update * pt transfer sitting/floor with use of UE on mat, modified independent. Target Visit 8
--- NOTE | 2024-09-05 09:31 | PTOPEVAL1 ---
Assessment and note entered by Sammie Quevedo, PT Evaluation Information Assessment Status Evaluation ICD-10 Condition Codes (PT) Difficulty Walking R26.2,Abnormalities of gait and mobility R26.9 Other ICD-10 Condition Codes ( R26.81 unsteady on feet PT) Onset June 2024 Subjective Information no falls, just more loss of balance with walking and having to side step to catch her balance; problems getting up from the floor. 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 She has not had any falls, but side steps to catch herself with walking. LE functional scale, self rating of 55% limitation in activity level. At home, she has not been doing any leg or fitness exercises. She is doing all of her self care and light home tasks. Avoids the stairs for safety. Her history includes CVA, bilateral knee & LBP, and decreased vision R eye. With the evaluation: 5 reps sit/stand time is WNL 2 minute walking test distance of 430'; Schultz balance score of 44/56---difficulty with single leg and small base of support activities; weakness of LE's- gross 4-/5. Skilled PT services are indicated to increase LE strength, gait and balance skills, with education for HEP and safety with mobility. Monitor knee and back pain as increase activity level. Plan of Care Interventions Neuro Re-education,Patient/Caregiver Education, Therapeutic Activities,Therapeutic Exercise PT Services Indicated Yes Treatment Frequency and 1-2x/wk for 8 visits Duration These treatments will address the objective and functional deficits as defined above. The patient will be advanced safely and appropriately in order for the patient to progress towards his/her prior level of function. Additional exercises will be introduced and as well as a comprehensive home exercise program upon discharge, if needed, ?to ensure carryover of functional gains achieved in the clinic. This treatment plan has been reviewed and agreement upon by the patient.
--- NOTE | 2024-10-05 08:51 | PTOPDC ---
Assessment and note entered by Sammie Quevedo, PT Assessment Status Discharge ICD-10 Condition Codes (PT) Difficulty Walking R26.2,Abnormalities of gait and mobility R26.9 Other ICD-10 Condition Codes ( R26.81 unsteady on feet PT) Onset June 2024 Subjective Information feel like I am stronger and have some good exercises for home; feel more steady when walking and more aware of how I walk to be safe; have not had any falls; Reported Pain Level Pain Score 0: Self Report Assessment PT Clinical Summary Danelle has received 8 PT sessions. She has improved in all areas: LE functional scale self rating from 55% to 29% limitation in activity level; Schultz balance score from 44 to 53/ 56, difficulty with single leg standing and tandem increase R and L LE strength; transfer sitting/ floor with use of UE on mat, modified indep; education for HEP and mobility safety. She has not had any falls since starting therapy. The goals were achieved, except single leg standing of 10 seconds. Discharge PT services. She is to continue with HEP and increase activity and walking as able. Plan of Care PT Services Indicated No
== END 2024-10-05 09:54 | disposition home or self-care (01) ==
LOC: ANHPT 08:00
PROVIDERS: PCP Nurse Practitioner Family; Visit Provider Nurse Practitioner Family
DX: R26.81 Unsteadiness on feet (principal)
CPT/HCPCS: 97110; 97112; 97116; 97161; 97530

== ENCOUNTER 2025-02-21 11:20 | Outpatient (CLI) | payer MEDICARE, SELFPAY ==
--- NOTE | ~2025-02-21 | DEXA_ITS ---
Bone Density Report Name: DEBBIE IRELAND Age: 69 Sex: Female Ethnicity: White Date of : 1955 Indication: hyperparathyroidism; hysterectomy; Referring Provider: HALINA ANGUIANO Study: Bone densitometry was performed. Exam Date: February 21, 2025 Accession number: [id number] Bone Density: Region BMD T-score Z-score Classification AP Spine(L1-L4) 1.289 2.2 4.1 Normal Femoral Neck (Left) 0.640 -1.9 -0.2 Osteopenia Total Hip (Left) 0.879 -0.5 0.9 Normal Femoral Neck (Right) 0.640 -1.9 -0.2 Osteopenia Total Hip (Right) 0.879 -0.5 0.8 Normal Femoral Neck Mean 0.640 -1.9 -0.2 Osteopenia Total Hip Mean 0.879 -0.5 0.8 Normal World Health Organization criteria for BMD impression classify patients as: Normal (T-score at or above -1.0), Osteopenia (T-score between -1.0 and -2.5), or Osteoporosis (T-score at or below -2.5). 10-year Fracture Risk(1): Major Osteoporotic Fracture 10% Hip Fracture 1.5% Reported Risk Factors: [place] (), Neck BMD=0.640, BMI=30.2 (1) FRAX(R) Version 3.08. Fracture probability calculated for an untreated patient. Fracture probability may be lower if the patient has received treatment. Clinical Information Provided by Patient: Has used the following medications: Forteo (i.e. parathyroid hormone), Vitamin D Has the following medical conditions: Hyperparathyroidism, Hysterectomy Menopause Age: 54 Does not regularly consume dairy products Drinks caffeinated beverages Onset of menses at age 14 Number of children 1 Impression: The patient has low bone mass, based on the Left Femoral Neck T-score. Discussion: BONE DENSITY IS LOW AT ONE OR MORE SKELETAL SITES. This patient's lowest T-score is low at one or more skeletal sites. It meets the World Health Organization's (WHO) criteria for ?low bone mass? (T-score between -1.0 and -2.5). The patient's 10-year risk of fracture as calculated by FRAX is less than the threshold where pharmacological therapy is recommended by the National Osteoporosis Foundation (NOF). However, all treatment decisions require clinical judgment and consideration of individual patient factors, including patient preferences, comorbidities, previous drug use, risk factors not captured in the FRAX model (e.g., frailty, falls, vitamin D deficiency, increased bone turnover, interval significant decline in bone density) and possible under or overestimation of fracture risk by FRAX. The patient should follow a healthful lifestyle (good nutrition with adequate calcium and vitamin D, and appropriate weight-bearing exercise). Follow-Up: Consider repeating this study in 2 to 3 years to reassess this patient's status, or sooner if there is some new clinical indication. Reported by: WALKER on 02/21/2025 11:55:00 AM. Reviewed, dictated and finalized at location A.
--- NOTE | ~2025-02-21 | MM_ITS ---
EXAMINATION: MM screening [place] BI w [place] HISTORY: Screening TECHNIQUE: Craniocaudal and mediolateral oblique 3-D tomosynthesis images were obtained and synthetic 2-D images were generated. CAD analysis was submitted and interpreted. COMPARISON: Comparison to multiple prior studies sequentially, with oldest reviewed study dated 12/04. BREAST PARENCHYMAL COMPOSITION: Not dense: There are scattered areas of fibroglandular density. FINDINGS: There is no evidence of suspicious mass, calcification, or architectural distortion to sugg est malignancy in either breast. There has been no suspicious interval change. IMPRESSION: 1. No mammographic evidence of malignancy. 2. Recommend routine screening mammography in one year. BI-RADS Category 1: Negative Reviewed, dictated and finalized at location B.
--- OUTSIDE RECORDS SUMMARY | 2025-02-21 11:29 | XMS_ITS | Continuity of Care Document ---
Author Organization [facility] Address [address] [place] [address] Phone Care Team Providers Care Lie Detector Operator Name Role Phone Napoleon Galaviz Unavailable Unavailable Procedures Procedure Date Eye Exam Established Pt Ophthalmoscopy, Subsequent Ophthalmoscopy, Subsequent Optic Nerve Topography Optic Nerve Topography Treatment Of Retinal Lesion Kenalog/Triamcinolone Acetonide Inj Treatment Of Retinal Lesion Advance Directives Directive Yes / No Effective Date File Name No Information Encounters Encounter Description Practice Location Reason(s) For Visit Diagnoses Date Provider Providers Copied on Encounter [facility], [address] [place] [address] [address], [place], [place], [id number], [place] tel:[phone] [facility] No Information Guillaume Bender. [address], [place], [facility], [place]. tel:[phone] Referring Provider: Napoleon Zambrano, [address], [place], [facility]. tel:[phone] [facility] [place] [facility], [address] [place] [address] [address], [place], [place], [id number], [place] tel:[phone] [facility] No Information Guillaume Bender. [address] [place], [address], [place]. tel:[phone] [facility] [place] [facility], [address] [place] [address] [address], [place], [place], [id number], [place] tel:[phone] [facility] No Information Guillaume Bender. [address] [place], [address], [place]. tel:[phone] Referring Provider: Napoleon Zambrano, [address] [place] [address], [address]. tel:[phone] Family History Family Member Type Diagnosis Age At Onset No Information Payers Payer name Insurance type Covered green party ID Authoriza tion(s) No Information Social History Type Description Quantity Date Captured Comments Sex Female Smoking Status No Information Chief Complaint And Reason For Visit No Information Reason For Referral Reason For Referral No Information History Of Present Illness Encounter Date Complaint History Of Prese nt Illness No Information Functional Status Date Functional Assessmen t No Information Instructions Date Instruction Additional Infor mation No Information Assessments Type Assessment Date No Information Patient Care Teams Name Effective Dates (start - stop) Status Members No Information
--- OUTSIDE RECORDS SUMMARY | 2025-02-21 11:29 | XMS_ITS | Encounter Summary ---
Author Organization [facility] Address [address] [place] [id number] Care Team Providers Care Line Maintenance Supervisor Name Role Phone Cassy Street MD Primary Care Provider [phone] Encounter Details Date Type Department Care Team (Late st Contact Info) Description 06/11/2017 Abstract [place] [address] , Generic Conversion, Social History Tobacco Use Types Packs/Day Years Used Date Smoking Tobacco: Never Assessed Comments Unknown Sex and Gender Information Value Date Recorded Sex Assigned at Not on file Legal Sex Female 7:55 PM CDT Gender Identity Not on file Sexual Orientation Not on file documented as of this encounter Plan of Treatment Not on file documented as of this encounter Visit Diagnoses Not on filedocumented in this encounter Care Teams Line Maintenance Supervisor Relationship Specialty Start Date End Date Cassy Street MD [address], [place] [address] PCP - General 09/30/14 documented as of this encounter
--- OUTSIDE RECORDS SUMMARY | 2025-02-21 11:29 | XMS_ITS | Clinical Summary ---
Author Organization [facility] Address [address] [place] [address] Care Team Providers Care Load Test Mechanic Name Role Phone Cassy Street MD Primary Care Provider Social History Tobacco Use Types Packs/Day Years Used Date Smoking Tobacco: Never Assessed Comments Unknown Sex and Gender Information Value Date Recorded Sex Assigned at Not on file Legal Sex Female 7:55 PM CDT Gender Identity Not on file Sexual Orientation Not on file Plan of Treatment Health Maintenance Due Date Last Done Comments Colorectal Cancer Screening Colonoscopy (10 Years) 1955 Hepatitis C 1975 DTaP, Tdap and Td Vaccines ( 1 - Tdap) 1976 Mammogram Screening 1997 Pneumococcal Vaccine: 50+ Ye ars (1 of 1 - PCV) 2007 Zoster Vaccines (1 of 2) 2007 Dexa Scan (General) 2022 COVID-19 Vaccine (1 - 2023-2 5 season) 2024 RSV Immunization or 60+ Years (1 - 1-dose 75+ series) 2032 Meningococcal B Vaccine Aged Out No l onger eligible based on patient's age to complete this topic Meningococcal Vaccine Aged Out No eder jitendra eligible based on patient's age to complete this topic RSV Immunizations Under 20 Months Aged Out No longer eligible based on patient's age to complete this topic Care Teams Load Test Mechanic Relationship Specialty Start Date End Date Cassy Street MD [address], [place] [address] PCP - General 09/30/14
--- OUTSIDE RECORDS SUMMARY | 2025-02-21 11:29 | XMS_ITS | Data Portability ---
Author Organization [place] - [facility] [employer], Main Office Address [address] [place] [address] Assessment No assessment recorded. Plan of Treatment Reminders Order Date Submit Date Provider Last Modified By Organization Details Last Modified Time Details Appointments None recorded. Lab None recorded. Referral endocrinolo kirill referral - type I diabetes, retinopathy , neuropathy. 2022 023 [email or web address] 3 [place], [address] [address], [place], [address], 3 08:13:16 endocrinolo gy referral - Was seeing Dr. Kramer. 2022 023 [email or web address] 3 [place], [address] [address], [place], [address], 3 08:15:44 Procedures None recorded. Surgeries None recorded. Imaging MAMMO, screening, digital, bilateral 20[email or web address] [place] [address] (Imaging), [address] [place] [address], [place], [address], 3 08:40:43 Medication Orders atorvastati n 80 mg tablet 2022 023 DIEUDONNE [facility], [address] [place] [address], [address], [place], [place], [id number], 3 10:16:40 Humalog U-100 Insulin 100 unit/mL subcutaneou s solution 2022 023 DIEUDONNE [facility], [address], [address], [place], [place], [id number], 3 10:14:02 Synthroid 25 mcg tablet 2022 023 DIEUDONNE [facility], [address], [address], [place], [address], 3 10:16:02 duloxetine 60 mg capsule,del ayed release 2022 023 DIEUDONNE [facility], [address] [place] [address], [facility] [address], [place], [place], [id number], 3 08:44:28 Patient TargetsNo targets recorded. Patient Instructions Encounter Date Encounter Id Patient Instructions Last Modified By Organization Details Last Modified Time 02/22/2023 [id number] Fu in 6 mo for htn, dm, lipid, thyroid, allergies, weight, hx CVA, [email or web address] Not available 02/22/2023 08:51:59 Reason for Referral Endocrinology Referral for W ell controlled type 1 diabetes mellitus type I diabetes, retinopathy, neuropathy. Referring Physician: [facility], Encounter Date: 02/22/2023 Endocrinology Referral for H ypothyroidism Was seeing Dr. Kramer. Referring Physician: [facility], Encounter Date: 02/22/2023 Results Created Date Observation Date Name Description Value Unit Range Abnormal Flag Note LastModifiedBy Organization Detail LastModifiedTime Result Notes None recorded. Problems Name Problem SNOMED Code Status Onset Date Resolution Date Notes Provider Name and Address Organization Details Recorded Time Acute sinusitis 21392364 Completed Not Available [facility] 3 01:02:50 Breast screening abnormal - told patient 101903188 Completed Not Available [facility] 3 01:02:50 Neuropathy due to diabetes mellitus 480881749 Active Not Available [facility] 3 01:02:50 Cerebrovas cular accident 041016201 Active Not Available [facility] 3 01:02:50 Fluid level behind tympanic membrane Completed Not Available [facility] 3 01:02:50 Headache 88396287 Completed Not Available [facility] 3 01:02:50 Dupuytren' s contractur e of finger 183634247 Completed Not Available [facility] 3 01:02:50 Menopause present 477966069 Active Not Available [facility] 3 01:02:50 Otitis externa 0297844 Completed Not Available [facility] 3 01:02:51 Localized osteoarthr osis 26121345 Completed Not Available [facility] 3 01:02:51 Dehydratio n 57956372 Completed Not Available [facility] 3 01:02:51 Sinusitis 02862430 Completed Not Available [facility] 3 01:02:51 Neuropathy 913087074 Completed Not Available [facility] 3 01:02:51 Contact dermatitis 33252856 Completed Not Available [facility] 3 01:02:51 Dizziness 723390914 Completed Not Available [facility] 3 01:02:51 Diabetic peripheral neuropathy 835013003 Active Not Available [facility] 3 01:02:52 Laryngitis 26319834 Completed Not Available [facility] 3 01:02:52 Type 1 diabetes mellitus 24736539 Active Not Available [facility] 3 01:02:52 Lichen planus 8496149 Completed Not Available [facility] 3 01:02:52 Retinopath y due to diabetes mellitus 2960668 Active Not Available [facility] 3 01:02:53 Hyperlipid emia 35316502 Active Not Available [facility] 3 01:02:53 Essential hypertensi on 66190869 Active Not Available [facility] 3 01:02:53 Otitis media 73431403 Completed Not Available [facility] 3 01:02:53 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 Not Available [facility] 3 01:02:53 Diabetes mellitus 44712221 Completed Not Available [facility] 3 01:02:54 Posterior rhinorrhea 91704627 Completed Not Available [facility] 3 01:02:54 Hypercalce any 86795994 Active 2021 Not Available [facility] 3 01:02:53 Dyslipidem ia 211003075 Active 2021 Not Available [facility] 3 01:02:51 Hypothyroi dism 19005858 Active 2021 Not Available [facility] 3 01:02:52 Well controlled type 1 diabetes mellitus 517832247 Active 2021 Not Available [facility] 3 01:02:52 Screening for malignant neoplasm of colon Active 2022 Not Available [facility] 3 01:02:50 Allergic rhinitis 00803135 Active 2022 MAURILIO Gale, [facility] [employer] [facility] 3 17:29:56 Seasonal allergy 431099282 Active 2022 Jelena Moe NP [address] [facility], [place] [address], [place], [address] , [facility] [employer] [facility] 3 08:26:55 Depressive disorder 97488124 Active 2022 Jelena Moe NP [address] [facility], [facility] [address], [place], [address] , [facility] [employer] [facility] 3 08:34:55 Problem Notes None recorded. Procedures Surgical History Date Name Laterality Status Provider Name and Address Organization Details Recorded Time 12/05/19 22 Most Recent Mammogram completed Jelena Amaral RN [facility] [employer] [facility] 02/22/2023 08:12:43 12/05/19 22 Most Recent Bone Density completed Jelena Amaral RN [facility] [employer] [facility] 02/22/2023 08:12:56 Cataract Surgery completed Not Available [facility] 10/06/2022 00:48:09 section completed Not Available [facility] 10/06/2022 00:48:09 Hysterectomy completed Not Available [facility] 10/06/2022 00:48:09 lumpectomy of breast completed Not Available [facility] 10/06/2022 00:48:09 Imaging Results None recorded. Procedure Notes None recorded. Medical Equipment None Reported. Allergies No known drug allergies Medications Name Sig Start Date Stop Date Status Note LastModified by Organization Details LastModified Time atorvasta tin 40 mg tablet Take 1 tablet every day by oral route at bedtime for 90 days. 03/06 completed Not Available Not Available Not Available atorvasta tin 80 mg tablet Take 1 tablet every day by oral route at bedtime for 90 days. 2022 active Not Available Not Available Not Avai lable prednison e 10 mg tablet Take by oral route with food. Day 1-4: 60 mg, Day 5-6: 50 mg, Day 7-8: 40 mg, Day 9-10: 30 mg, Day 11-12: 20 mg, Day 13-15: 10 mg. active Not Available Not Available No t Available gabapenti n 600 mg tablet Take 2 tablets 3 times a day by oral route for 90 days. 06/15 completed Not Available Not Available Not Available trazodone 50 mg tablet Take 0.5 tablets every day by oral route at bedtime. active Not Available Not Available No t Available Glucagon Emergency Kit 1 mg solution for injection Take 1 mg as needed by injectio n route as needed for 1 day. active Not Available Not Available No t Available benzonata te 200 mg capsule TAKE 1 CAPSULE BY MOUTH 3 TIMES DAILY active Not Available Not Available No t Available ondansetr on HCl 8 mg tablet Take 1 tablet every 8 hours by oral route. 03/06 completed Not Available Not Available Not Available Zithromax Z-Paco 250 mg tablet Take 2 TABLET EVERY DAY by oral route for 1 day. Than 1 tablet for 4 days active Not Available Not Available No t Available Lantus U-100 Insulin 100 unit/mL subcutane ous solution INJECT 40 UNITS SUBCUTAN EOUSLY EVERY DAY active Not Available Not Available No t Available clopidogr el 75 mg tablet TAKE 1 TABLET BY MOUTH DAILY active Not Available Not Available No t Available acyclovir 400 mg tablet Take 1 tablet by mouth two times daily active Not Available Not Available No t Available aspirin 81 mg tablet,de layed release Take 1 tablet every day by oral route. active Not Available Not Available No t Available tramadol 50 mg tablet TK 1 T PO Q 6 H 10/21 completed Not Available Not Available Not Available triamcino lone acetonide 0.1 % topical cream [place]ON AA QID ON WRIST active Not Available Not Available No t Available carvedilo l 3.125 mg tablet TAKE 1 TABLET BY MOUTH TWICE DAILY 08/25 completed HOLD Not Available Not Available Not Available ondansetr on 8 mg disintegr ating tablet DIS 1 T ON THE TONGUE Q 8 H PRN 12/05 completed Not Available Not Available Not Available clobetaso l 0.05 % topical gel APPLY TO THE AFFECTED AREA(S) TWICE A DAY NEEDED active Not Available Not Available No t Available pravastat in 10 mg tablet 1 tab po q hs active hyperlip idemia Not Available Not Available Not Available triamcino lone acetonide 0.1 % dental paste APPLY TO INVOLVED AREAS TWICE A DAY 03/06 completed Not Available Not Available Not Available Humalog U-100 Insulin 100 unit/mL subcutane ous solution inject 200 units every 72 hours x 90 days active Not Available Not Available No t Available Synthroid 25 mcg tablet TAKE 1 TABLET EVERY MORNING FOR HYPOTHYR OIDISM 2022 active Not Available Not Available Not Avai lable OneTouch Ultra Test strips Take 1 strip 4 times a day 10/06 completed Not Available Not Available Not Available meclizine 25 mg tablet Take 2 tablets every day by oral route. 06/20 completed Not Available Not Available Not Available promethaz ine 25 mg tablet active Not Available Not Available Not Available losartan 25 mg tablet TAKE 1 TABLET BY MOUTH DAILY active Not Available Not Available No t Available orphenadr ine citrate ER 100 mg tablet,ex tended release TK 1 T PO BID PRF SPASMS 10/21 completed Not Available Not Available Not Available gabapenti n 300 mg capsule TAKE 2 CAPSULES BY MOUTH TWICE DAILY active Not Available Not Available No t Available diclofena c sodium 75 mg tablet,de layed release Take 1 tablet 3 times a day by oral route for 90 days. active Not Available Not Available No t Available acyclovir 200 mg capsule Take 1 capsule twice a day by oral route for 90 days. 10/21 completed Not Available Not Available Not Available clobetaso l 0.05 % topical ointment APPLY TO RASH AREAS BID active Not Available Not Available No t Available irbesarta n 150 mg tablet TAKE 1 TABLET DAILY active Not Available Not Available No t Available scopolami ne 1 mg over 3 days transderm al patch (1 mg over 3 days) (USE 1 PATCH Q 72 HOURS) active when travelin g Not Available Not Available Not Available methylpre dnisolone 4 mg tablets in a dose pack Take as directed on pack. Directio ns for Medrol Dosepak: 1st day: 2 tablets before breakfas t, 1 tablet after lunch and after supper, and 2 tablets at bedtime. 2nd day: 1 tablet before breakfas t. 1 tablet after lunch and after supper, and 2 tablets at bedtime. 3rd day: 1 tablet before breakfas t, after lunch, after supper and at bedtime. 4th day: 1 tablet before breakfas t, after lunch and at bedtime. 5th day: 1 tablet before breakfas t and at bedtime. 6th day: 1 tablet before breakfas t 05/19 completed Not Available Not Available Not Available ketorolac 60 mg/2 mL intramusc ular solution Inject 2 mL every day by intramus cular route for 1 day. 08/25 completed Not Available Not Available Not Available ondansetr on 4 mg disintegr ating tablet active PRN Not Available Not Available Not Available fluticaso ne propionat e 50 mcg/actua tion nasal spray,elizabeth pension SHAKE LQ AND U 2 SPRAYS IEN QD active Not Available Not Available No t Available lisinopri l 2.5 mg tablet Take 1 tablet every day by oral route for 30 days. active Not Available Not Available No t Available amoxicill in 875 mg-potass ium clavulana te 125 mg tablet TK 1 T PO Q 12 H FOR 10 DAYS active Not Available Not Available No t Available Novolog FlexPen U-100 Insulin aspart 100 unit/mL (3 mL) subcutane ous Inject 8 units 4 times a day by subcutan eous route for 90 days. active Not Available Not Available No t Available Ciprodex 0.3 %-0.1 % ear drops,elizabeth pension INSTILL 4 DROPS INTO AFFECTED EAR(S) BY OTIC ROUTE 2 TIMES PER DAY FOR 7 DAYS active Not Available Not Available No t Available metoprolo l tartrate 25 mg tablet active Not Available Not Available Not Available duloxetin e 30 mg capsule,d elayed release TAKE 1 CAPSULE BY MOUTH TWICE DAILY active Not Available Not Available No t Available duloxetin e 60 mg capsule,d elayed release Take 1 capsule every day by oral route. active Not Available Not Available No t Available BD Ultra-Fin e Mini Pen Needle 31 gauge x 10/21 active Not Available Not Available Not Available Lyrica 50 mg capsule TK ONE C PO TID 10/17 completed Not Available Not Available Not Available chlorhexi dine gluconate 0.12 % mouthwash 08/25 completed Not Available Not Available Not Available Fish Oil 1 PO QD (1200 MG) 08/25 completed Not Available Not Available Not Available Centrum Silver 1 PO QD 02/22 completed Not Available Not Available Not Available Levemir U-100 Insulin 100 unit/mL subcutane ous solution INJECT 35 UNITS UNDER THE SKIN DAILY active Not Available Not Available No t Available BD Insulin Syringe Ult-Fine II 0.5 mL 31 gauge x 5/16 10/06 completed Not Available Not Available Not Available BD Ultra-Fin e Original Pen Needle 29 gauge x 1/2 10/06 completed Not Available Not Available Not Available Glucos Chond Cplx Advanced 1 PO BID 08/25 completed Not Available Not Available Not Available Humalog KwikPen (U-100) Insulin 100 unit/mL subcutane ous INJECT SUBCUTAN EOUSLY 8 UNITS 4 TIMES DAILY 03/06 completed Not Available Not Available Not Available Humalog KwikPen Insulin 8 units plus sliding scale prn 06/24 completed Not Available Not Available Not Available Besivance 0.6 % eye drops,elizabeth pension 08/11 completed Not Available Not Available Not Available OneTouch Delica Lancets 33 gauge 10/06 completed Not Available Not Available Not Available Suprep Bowel Prep Kit 17.5 gram-3.13 gram-1.6 gram oral solution TK UTD 01/05 completed Not Available Not Available Not Available Lumigan 0.01 % eye drops active Not Available Not Available No t Available Lotemax 0.5 % eye gel drops INT 1 GTT IN OS TID DIRECTED . START AFTER SURGERY 08/11 completed Not Available Not Available Not Available Prolensa 0.07 % eye drops 08/11 completed Not Available Not Available Not Available Levemir FlexTouch U-100 Insulin 100 unit/mL (3 mL) subcutane ous pen Inject 35 units every day by sub-q route for 90 days. active Not Available Not Available No t Available Omnipod Dash Pods (Gen 4) subcutane ous cartridge CHANGE POD EVERY [address] Kramer Not Available Not Available No t Available Tresiba U-100 Insulin 100 unit/mL subcutane ous solution ADMINIST ER 30 UNITS UNDER THE SKIN EVERY DAY AT BEDTIME 10/13 completed Not Available Not Available Not Available FreeStyle Sara 2 Sensor kit USE DIRECTED AND CHANGE SENSOR EVERY 14 DAYS FOR GLUCOSE MONITORY ING active Not Available Not Available No t Available Darien COVID-19 Vaccine (EUA) 08/25 completed first dose taken on 10/11/20 Not Available Not Available Not Available BinaxNOW COVID-19 Ag Self Test kit Use as Directed on the Package 02/22 completed Not Available Not Available Not Available Vitals Date Recorded Body mass index (BMI) Body height Oxygen saturation Oxygen saturation in Arterial blood by Pulse oximetry Heart rate Respiratory rate Body temperature Body weight Systolic And Diastolic Provider Name and Address Organization Details Last Updated DateTime 3 28.6 kg/m2 160.02 cm 98 % 98 % 69 /min 16 /min 97.9 [degF] 80538.4 5 g 141/65 mm[Hg] Not Available [facility] 3 00:57:19 Date Recorded Body height Oxygen saturation Oxygen saturation in Arterial blood by Pulse oximetry Heart rate Body temperature Systolic And Diastolic Provider Name and Address Organization Details Last Updated DateTime 2 160.02 cm 94 % 94 % 79 /min 97.5 [degF] 106/72 mm[Hg] Not Available [facility] 3 00:57:18 Date Recorded Body height Body mass index (BMI) Body weight Body temperature Heart rate Oxygen saturation Oxygen saturation in Arterial blood by Pulse oximetry Systolic And Diastolic Provider Name and Address Organization Details Last Updated DateTime 3 160.02 cm 29.5 kg/m2 19949.4 8 g 96.4 [degF] 67 /min 96 % 96 % 140/72 mm[Hg] Jelena Amaral RN [facility] [employer] 3 08:10:24 Date Recorded Body height Body mass index (BMI) Body weight Body temperature Heart rate Systolic And Diastolic Provider Name and Address Organization Details Last Updated DateTime 3 160.02 cm 30.2 kg/m2 02952.8 6 g 97.3 [degF] 89 /min 134/63 mm[Hg] Shayy Fitzgerald MA [facility] [employer] [facility] 3 09:57:40 Date Recorded Body mass index (BMI) Body height Oxygen saturation Oxygen saturation in Arterial blood by Pulse oximetry Heart rate Body temperature Body weight Systolic And Diastolic Provider Name and Address Organization Details Last Updated DateTime 2 28.5 kg/m2 160.02 cm 99 % 99 % 76 /min 97.7 [degF] 00871.3 7 g 117/75 mm[Hg] Not Available [facility] 3 00:57:19 Social History Question Answer Notes LastModified by Organizat ion Details LastModified Time Tobacco Smoking Status Never Smoker Maday samson, [facility] [employer] [facility] 03/24/2023 09:39:43 Do You Have An Advance Directive? Yes [id number] Information not available 10/06/2022 Are You Blind Or Do You Have Difficulty Seeing? No Information not available 03/24/2023 What Is Your Level Of Caffeine Consumption? Moderate [id number] Information not available 10/06/2022 How Much Tobacco Do You Chew? None [id number] Information not available 10/06/2022 What Is Your Code Status? Full Code Information not available 03/24/2023 In The 14 Days Before Symptom Onset, Have You Had Close Contact With A Laboratory-confir med COVID-19 While That Case Was Ill? No Information not available 03/24/2023 In The 14 Days Before Symptom Onset, Have You Had Close Contact With A Person Who Is Under Investigation For COVID-19 While That Person Was Ill? No Information not available 03/24/2023 Are You Deaf Or Do You Have Serious Difficulty Hearing? No Information not available 03/24/2023 What Type Of Diet Are You Following? DIABETIC [id number] Information not available 10/06/2022 Which Illicit Or Recreational Drugs Have You Used? None Information not available 03/24/2023 What Is The Highest Grade Or Level Of School You Have Completed Or The Highest Degree You Have Received? [id number] Information not available 03/24/2023 Have There Been Any Changes To Your Family Or Social Situation? No Information no t available 03/24/2023 Are There Any Guns Present In Your Home? No Information not available 03/24/2023 Where Do You Live? SingleLevelHouse Information not available 03/24/2023 Do You Have A Medical Power Of Stamps Or Coins Salesperson? Yes Information not available 03/24/2023 Do You Have Any Pets? No Information not available 03/24/2023 What Is Your Relationship Status? [id number] Information not available 10/06/2022 Do You Use Your Seat Belt Or Car Seat Routinely? Yes Information not available 03/24/2023 Do You Have Smoke And Carbon Monoxide Detectors In Your Home? Yes Information not available 03/24/2023 Are There Any Smokers In Your House? No Information not available 03/24/2023 How Much Tobacco Do You Smoke? No [id number] Information not available 10/06/2022 Do You Participate In Social Media? No Information not available 03/24/2023 Do You Use Sunscreen Routinely? Yes Information not available 03/24/2023 Have You Recently Traveled Abroad? No Information not available 03/24/2023 Do You Have Difficulty Walking Or Climbing Stairs? No Information not available 03/24/2023 Sex: Female Functional Status Question Answer Note LastModified by Organizat ion Details LastModified Time What is your level of alcohol consumption? Occasional [id number] Information not available 10/06/2022 Do you or have you ever used smokeless tobacco? Never used smokeless tobacco [id number] Information not available 10/06/2022 Do you have transportation difficulties? No Information not available 03/24/2023 Are you able to walk? YESWOREST Information not available 03/24/2023 Do you have difficulty doing errands alone? No Information not available 03/24/2023 Are you able to care for yourself? Yes Information n ot available 03/24/2023 What is your occupation? retired/disabl ed Information not available 03/24/2023 Do you have difficulty dressing or bathing? No Information not available 03/24/2023 Do you or have you ever used e-cigarettes or vape? Never used electronic cigarettes Information not available 03/24/2023 What is your exercise level? Occasional [id number] Information not available 10/06/2022 Mental Status Question Answer Note LastModified by Organizat ion Details LastModified Time Do you feel stressed (tense, restless, nervous, or anxious, or unable to sleep at night)? [id number] Information not available 03/24/2023 Do you have difficulty concentrating, remembering or making decisions? No Information no t available 03/24/2023 Family History Relationship Description Onset Age of this Age Resolved Age Notes LastModified by Organization Details LastModified Time Father Diabetes mellitus [id number] Not available 10/06/2022 00:48:16 Father Congestive heart failure [email or web address] Not available 2022 09:39:42 Father Cerebrovascu lar accident akovach Not available 09:39:42 Mother Disorder of coronary artery akovach Not available 2022 09:39:42 Mother Rheumatoid arthritis akovach Not available 2022 09:39:42 Brother Rheumatoid arthritis akovach Not available 2022 09:39:42 Medical History Condition Response DIABETES, TYPE Y EYE PROBLEMS Y DEPRESSION (INCLUDING POST ) Y HYPERTENSION Y DIZZINESS Y STROKE/TIA Y Gynecological History Statement/Question Response If Post Menopausal, Age at Menopause 55 Date of Last Mammogram 12/04/2021 Date of Last Colonoscopy Most Recent Mammogram 12/04/2021 Most Recent Bone Density 12/04/2021 Obstetrics History GPAL:G 0 P 0 0 0 0 Immunizations Vaccine Type Date Status Note Provider Nam e and Address Organization Details Recorded Time COVID-19, mRNA, LNP-S, PF, 100 mcg/0.5mL dose or 50 mcg/0.25mL dose 1 completed Not Available [facility] 10/06/2022 01:20:55 Pneumococcal conjugate PCV20, polysaccharide [id number] conjugate, adjuvant, PF 2 completed Not Available [facility] 10/06/2022 01:20:55 COVID-19, mRNA, LNP-S, bivalent, PF, 30 mcg/0.3 mL dose 2 completed Not Available [facility] 10/06/2022 01:20:55 Influenza, split virus, quadrivalent, preservative 2 completed Not Available [facility] 10/06/2022 01:20:55 COVID-19, mRNA, LNP-S, PF, 100 mcg/0.5mL dose or 50 mcg/0.25mL dose 2 completed Not Available [facility] 10/06/2022 01:20:55 COVID-19, mRNA, LNP-S, PF, 100 mcg/0.5mL dose or 50 mcg/0.25mL dose 1 completed Not Available [facility] 10/06/2022 01:20:55 Influenza, split virus, quadrivalent, preservative 0 completed Not Available [facility] 10/06/2022 01:20:56 Influenza, split virus, quadrivalent, preservative 8 completed Not Available [facility] 10/06/2022 01:20:56 pneumococcal polysaccharide PPV23 8 completed Not Available [facility] 10/06/2022 01:20:56 Influenza, split virus, trivalent, preservative 6 completed Not Available [facility] 10/06/2022 01:20:56 Influenza, split virus, trivalent, preservative 5 completed Not Available [facility] 10/06/2022 01:20:56 Influenza, split virus, trivalent, preservative 4 completed Not Available [facility] 10/06/2022 01:20:56 Influenza, split virus, trivalent, preservative 3 completed Not Available [facility] 10/06/2022 01:20:57 Tdap 1 completed Not Available [facility] 10/06/2022 01:20:57 pneumococcal polysaccharide PPV23 9 completed Not Available [facility] 10/06/2022 01:20:57 Influenza, split virus, quadrivalent, PF 1 completed Not Available [facility] 10/06/2022 01:20:57 zoster recombinant 1 completed Not Available [facility] 10/06/2022 01:20:57 Influenza, split virus, quadrivalent, PF 0 completed Not Available [facility] 10/06/2022 01:20:58 Influenza, split virus, quadrivalent, PF 9 completed Not Available [facility] 10/06/2022 01:20:58 zoster recombinant 1 completed Not Available [facility] 10/06/2022 01:20:58 Past Encounters Encounter ID Performer Location Encounter Start Date Encounter Closed Date Diagnosis/Indication Diagnosis SNOMED-CT Code Diagnosis ICD10 Code Diagnosis Note [id number] [facility] [place] [address] [place] [address] 10/13/2020 00:00:00 10/13/2020 12:59:47 [id number] Aviva Alvarez MD [facility] [place] [facility] [place] [address] [address] 10/28/2020 00:00:00 12/24/2020 16:42:13 [id number] [facility] ic_Gateway [facility] [place] [address] [place] [address] 11/17/2020 00:00:00 11/17/2020 15:59:[id number] [facility] [place] [address] [place] [address] 12/05/2020 00:00:00 12/05/2020 11:03:04 [id number] Aviva Alvarez MD [facility] [place] [address] [place] [address] 02/16/2021 00:00:00 02/16/2021 08:48:29 [id number] MD [facility] [place] [address] [place] [address] 03/06/2021 00:00:00 03/06/2021 09:58:43 [id number] Aviva Alvarez MD [facility] [place] [address] [place] [address] 05/05/2021 00:00:00 05/05/2021 10:31:50 [id number] Keren Kramer MD [facility] [place] [address] [place] [address] 06/09/2021 00:00:00 06/09/2021 10:23:29 [id number] Aviva Alvarez MD [facility] [place] [address] [place] [address] 08/19/2021 00:00:00 08/19/2021 11:52:09 [id number] Keren Kramer MD [facility] [place] [address] [place] [address] 10/06/2021 00:00:00 10/06/2021 10:07:51 [id number] Aviva Alvarez MD [facility] [place] [address] [place] [address] 01/27/2022 00:00:00 01/27/2022 10:39:45 [id number] Keren Kramer MD [facility] [place] [address] [place] [address] 02/02/2022 00:00:00 02/02/2022 12:18:41 [id number] [facility]way [facility] [place] [address] [place] [address] 06/15/2022 00:00:00 06/15/2022 13:52:00 [id number] Elmer Canada MD [address] [address] 08/25/2022 00:00:00 08/25/2022 08:41:41 [id number] Jelena Moe NP [address] [address] 02/22/2023 07:58:41 02/22/2023 08:55:10 Essential hypertension 02571967 I10 ASA 81 mg po dailyLosar parker 25 mg po daily.No longer seeing cardiologi st. States not taking carvedilol . Hyperlipidemia 81270416 E78.5 Atorvastat in 80 mg po nightly. Diabetic p eripheral neuropathy 995208150 E11.40 duloxetine 60 mg po daily.Guilherme pentin 300 mg 3 cap po tid Hypothyroidism 20920079 E03.9 Synthroid 25 mcg. Referring to new endo. 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 Well contr olled type 1 diabetes mellitus 139260594 E10.9 Glucagon emergency kitHumalog 200 units every 72 hours.Omni pod Dash Pods. Allergic rhinitis 154957 04 J30.9 Flonase Cerebrovas cular accident 578175024 I63.9 ASA 81 mg po daily. Depressive disorder 3548 9007 F32.A duloxetine 60 mg po daily. (was previously on 30 mg po bid) Screening mammography 24 525067 Z12.31 2Dexa done 11/[address] Kramer. [id number] Keren Kramer MD [facility] [place] [address] [place] [address] 03/24/2023 09:38:23 03/24/2023 10:21:17 Well controlled type 1 diabetes mellitus 946731763 E10.9 A1C of 7.6% up from 6.5%- patient has gained some weight and having some stress from caretaking . Continue current settings as follows:0. 7 u/hr from 8 am to 10 pm0.9u/hr 10p-8aCont inue carb ratio but reduce to 1:20 due to hypoglycem ia following dinner.Con tinued sensitivit y of 70. Continue dexcom cgm. Recommende d we continue with dexcom and omnipod as patient better overall with combined/i ntegrated therapy. Dyslipidemia 345129363 E 78.5 Continue on atorvastat in as LDL in range. Hypothyroidism 02566164 E03.9 FT4 in ideal range and patient having more energy since start of therapy- continue on synthroid 25 mcg daily. Spent up to 25 minutes preparing to see the patient (eg, review of tests), obtaining and/or reviewing separately obtained history, performing a medically appropriat e examinatio n and evaluation , counseling and educating the patient, ordering medication s, tests, along with documentin g clinical informatio n in the electronic health record, independen tly interpreti ng results and communicat ing results to the patient. Patient can be followed by PCP - she/he is aware of my resignatio n and last day of May 20. If needed his/her PCP can refer patient to another endocrinol ogist in the area. All questions /concerns answered and refills necessary at visit today. Health Concerns Section Related Observation LastModified by Organization Detai ls LastModified Time None Recorded Concern Status LastModified by Organization Details LastModified Time None Recorded Advance Directives Directive Y: Payers Insurance Date Sequence Insurance Name Policy Number Policy Leone Covered Member ID Leone Member ID Guarantor Name 03/22/2023 1 [place] Gregoria Alesha Figueroa [id number] Gregoria Figueroa 03/22/2023 2 A[employer] (MEDICARE SUPPLEMENT) Gregoria Figueroa [id number] Gregoria Figueroa Notes Date Note Type Note Provider Name and Address Organization Details Recorded Time 02/22/2023 text/html Here for 6 mo check up. HTN- stable. Low sodium. Pt stopped seeing infantry unit leader.Lipid - tries low fat diet.DM type I/Neuropathy/retin opathy- omnipod. Seeing dr. Kramer. 80-124 in the morning. Neuropathy painful often. Walks in slow amounts.Thyroid- stable on meds. Labs due with dr. Kramer in 1 mo.Allergic rhinitis- flonaseCVA- Feeling balance is off at times. Jelena Moe, YOLANDA [address] [facility], [place], [address], [place] [employer] 02/22/2023 08:52:18 03/24/2023 text/html 67 yo female com es in for follow up in management of overall well controlled type I DM (A1C increased from 6.5% up from 7.6%), dyslipidemia and hypothyroidism. last seen in Jun 2022 at that time wecontinued basal settings as follows:0.7 u/hr from 8 am to 10 pm0.9u/hr 10p-8aContinued on carb ratio at 1:10 and 1:12 to provide tighter coverage.Continued sensitivity of 70. Continue dexcom cgm. we continued synthroid 25 mcg daily-she has good energy overall. Sugars running under 120 mg/dL consistently.has a few lows before bedtime due to over bolus we continued statin therapy she has had some weight gain and some hyperglycemia. labs from 03/18/23:a1c 7.6%microalbumin 15 ug/mgTSH of 5.11 uIU/mlFT4 of 1.23 ng/dL138/56/70/56g lucose 114 m/dLLFT normalCr normal Keren Kramer MD [address] [facility] [address], [place], [address], [employer] 03/24/2023 11:47:07 OBGyn Episode No OBEpisode recorded.
== END 2025-02-21 11:21 | disposition home or self-care (01) ==
PROVIDERS: PCP Nurse Practitioner Family; Visit Provider Nurse Practitioner Family
DX: Z12.31 Encounter for screening mammogram for malignant neoplasm of breast (principal); Z78.0 Asymptomatic menopausal state; M85.88 Other specified disorders of bone density and structure, other site
CPT/HCPCS: 77063; 77067; 77080

== ENCOUNTER 2025-02-22 07:33 | Outpatient (CLI) | payer MEDICARE, SELFPAY ==
--- NOTE | ~2025-02-22 | US_ITS ---
US thyroid INDICATION: Hyperlipidemia. Hypothyroidism. TECHNIQUE: Real-time sonographic images of the thyroid gland were obtained. COMPARISON: No prior studies for comparison. FINDINGS: The right thyroid lobe measures 3.3 x 1.2 x 1.4 cm. The left thyroid lobe measures 3.5 x 1 .3 x 1.1 cm. The thyroid gland is normal in size and echotexture. There are solid hypoechoic nodule i n the right thyroid lobe measuring 3 mm which is wider than tall, smoothly marginated without interna l echogenic foci are vascularity. Inferior to the right thyroid lobe is a complex hypoechoic mass paul suring 1.3 cm which is wider than tall. The lesion is mixed solid and cystic with ill-defined margins and no internal echogenic foci. No definitive vascularity identified. No cervical lymphadenopathy. N ormal vascular flow is present. IMPRESSION: 1. Right thyroid nodule, TR 2 benign. No follow-up needed. 2: Complex mixed solid and cystic mass inferior to the right thyroid lobe likely nonthyroidal in jaden gin. Differential diagnosis includes reactive or cystic lymph node, branchial cleft remnant or a andreea gn cystic lesion. Consider short-term follow-up ultrasound in 6 months or MRI evaluation with contras t. Consider ENT referral. Reviewed, dictated and finalized at location A. IMPRESSION: 1. Right thyroid nodule, TR 2 benign. No follow-up needed. 2: Complex mixed solid and cystic mass inferior to the right thyroid lobe like ly nonthyroidal in origin. Differential diagnosis includes reactive or cystic l ymph node, branchial cleft remnant or a benign cystic lesion. Consider short-te follow-up ultrasound in 6 months or MRI evaluation with contrast. Consider E NT referral.
== END 2025-02-22 07:34 | disposition home or self-care (01) ==
LOC: MICIMG 07:34
PROVIDERS: PCP Nurse Practitioner Family; Visit Provider Internal Medicine
DX: E78.5 Hyperlipidemia, unspecified (principal); E10.65 Type 1 diabetes mellitus with hyperglycemia; M85.80 Other specified disorders of bone density and structure, unspecified site; E03.9 Hypothyroidism, unspecified; E10.42 Type 1 diabetes mellitus with diabetic polyneuropathy; I10 Essential (primary) hypertension; Z71.3 Dietary counseling and surveillance
CPT/HCPCS: 76536

== ENCOUNTER 2025-02-22 08:31 | Outpatient (CLI) | payer MEDICARE, SELFPAY ==
--- NOTE | ~2025-02-22 | NM_ITS ---
EXAMINATION: NM parathyroid w imaging DATE: 02/22/2025 11:37 INDICATION: Hyperlipidemia, unspecified. Indeterminate nodule inferior to the right thyroid lobe iden tified on prior ultrasound. TECHNIQUE: 19.5 mCi Tc99m sestamibi (Cardiolite) was administered by intravenous route. Anterior imag es of the neck were obtained at 10 minutes and 3 hours. Additional delayed SPECT imaging was obtained and reconstructed in axial, sagittal and coronal planes. COMPARISON: None. FINDINGS/IMPRESSION: There is a prominent asymmetric focus of persistent activity in the region of the inferior right thyr oid lobe corresponding in location to the previously noted indeterminate nodule and consistent with p arathyroid adenoma. Reviewed, dictated and finalized at location A.
--- OUTSIDE RECORDS SUMMARY | 2025-02-22 08:35 | XMS_ITS | Continuity of Care Document ---
Author Organization [facility] Address [address] [place] [address] Phone Care Team Providers Care Handcrew Foreman Name Role Phone Napoleon Galaviz Unavailable Unavailable Procedures Procedure Date Eye Exam Established Pt Ophthalmoscopy, Subsequent Ophthalmoscopy, Subsequent Optic Nerve Topography Optic Nerve Topography Treatment Of Retinal Lesion Kenalog/Triamcinolone Acetonide Inj Treatment Of Retinal Lesion Advance Directives Directive Yes / No Effective Date File Name No Information Encounters Encounter Description Practice Location Reason(s) For Visit Diagnoses Date Provider Providers Copied on Encounter [facility], [address] [place] [address] [address], [place], [place], [id number], [place] tel:[phone] [facility] No Information Guillaume Bender. [address] [place], [place], [facility], [place]. tel:[phone] Referring Provider: Napoleon Zambrano, [address], [place], [facility]. tel:[phone] [facility], [address] [place] [address] [address], [place], [place], [id number], [place] tel:[phone] [facility] No Information Guillaume Bender. [address] [place], [address], [place]. tel:[phone] [facility], [address] [place] [address] [address], [place], [place], [id number], [place] tel:[phone] [facility] No Information Guillaume Bender. [address] [place], [address], [place]. tel:[phone] Referring Provider: Napoleon Zambrano, [address] [place] [address], [address]. tel:[phone] Family History Family Member Type Diagnosis Age At Onset No Information Payers Payer name Insurance type Covered democrat ID Authoriza tion(s) No Information Social History [...]
--- OUTSIDE RECORDS SUMMARY | 2025-02-22 08:35 | XMS_ITS | Encounter Summary ---
Author Organization [facility] Address [address] [place] [address] Care Team Providers Care Licensed Massage Practitioner Name Role Phone Cassy Street MD Primary Care Provider Encounter Details Date Type Department Care Team (Late st Contact Info) Description 06/11/2017 [place] [address] , Generic Conversion, Social History Tobacco Use [...] on filedocumented in this encounter Care Teams Licensed Massage Practitioner Relationship Specialty Start Date End Date Cassy Street MD [address], [place] [address] PCP - General 09/30/14 documented as of this encounter
--- OUTSIDE RECORDS SUMMARY | 2025-02-22 08:35 | XMS_ITS | Clinical Summary ---
Author Organization [facility] Address [address] [place] [address] Care Team Providers Care Abe Teacher Name Role Phone Cassy Street MD Primary [...] age to complete this topic Care Teams Abe Teacher Relationship Specialty Start Date End Date Cassy Street MD [address], [place] [address] PCP - General 09/30/14
== END 2025-02-22 08:32 | disposition home or self-care (01) ==
PROVIDERS: PCP Nurse Practitioner Family; Visit Provider Internal Medicine
DX: E78.5 Hyperlipidemia, unspecified (principal); E10.42 Type 1 diabetes mellitus with diabetic polyneuropathy; M85.80 Other specified disorders of bone density and structure, unspecified site; E03.9 Hypothyroidism, unspecified; E83.52 Hypercalcemia; I10 Essential (primary) hypertension; Z71.3 Dietary counseling and surveillance; Z46.81 Encounter for fitting and adjustment of insulin pump
CPT/HCPCS: 78070; A9500

== ENCOUNTER 2025-03-18 09:47 | Outpatient (CLI) | payer MEDICARE, SELFPAY ==
--- OUTSIDE RECORDS SUMMARY | 2025-03-18 09:59 | XMS_ITS | Clinical Summary ---
Author Organization [facility] Address [address] [place] [address] Care Team Providers Care Physician Intensivist Name Role Phone Cassy Street MD Primary Care Provider [phone] Social History Tobacco Use Types Packs/Day Years [...] age to complete this topic Care Teams Physician Intensivist Relationship Specialty Start Date End Date Cassy Street MD [address], [place] [address] PCP - General 09/30/14
--- OUTSIDE RECORDS SUMMARY | 2025-03-18 09:59 | XMS_ITS | Continuity of Care Document ---
Author Organization [facility] Address [address] [place] [address] Phone Care Team Providers Care Senior Tech Manufacturing Engineering Name Role Phone Napoleon Galaviz Unavailable Unavailable Procedures Procedure Date Eye Exam Established Pt Ophthalmoscopy, Subsequent Ophthalmoscopy, Subsequent Optic Nerve Topography Optic Nerve Topography Treatment Of Retinal Lesion Kenalog/Triamcinolone Acetonide Inj Treatment Of Retinal Lesion Advance Directives Directive Yes / No Effective Date File Name No Information Encounters Encounter Description Practice Location Reason(s) For Visit Diagnoses Date Provider Providers Copied on Encounter [facility], [address] [place] [address] [address], [place], [place], [id number], [place] tel:[phone] [facility] No Information Guillaume Bender. [address] [place], [place], [facility], [place]. tel:[phone] Referring Provider: Napoleon Zambrano, [address] [place], [place], [facility]. tel:[phone] [facility], [address] [place] [address] [address], [place], [place], [id number], [place] tel:[phone] [facility] No Information Guillaume Bender. [address] [place], [address], [place]. tel:[phone] [facility], [address] [place] [address] [address], [place], [place], [id number], [place] tel:[phone] [facility] No Information Guillaume Bender. [address] [place], [address], [place]. tel:[phone] Referring Provider: Napoleon Zambrano, [address] [place] [address], [address]. tel:[phone] Family History Family Member Type Diagnosis Age [...]
--- OUTSIDE RECORDS SUMMARY | 2025-03-18 09:59 | XMS_ITS | Encounter Summary ---
Author Organization [facility] Address [address] [place] [address] Care Team Providers Care Seamer Elastic Band Name Role Phone Cassy Street MD Primary Care Provider Encounter Details Date Type Department Care Team (Late st Contact Info) Description 06/11/2017 [place] [address] , Generic Conversion, Social History Tobacco Use [...] on filedocumented in this encounter Care Teams Seamer Elastic Band Relationship Specialty Start Date End Date Cassy Street MD [address], [place] [address] PCP - General 09/30/14 documented as of this encounter
[2025-03-18 10:33] LABS: Alanine Aminotransferase 27 U/L (6-35); Albumin Level 3.9 g/dL (3.5-5.1); Alkaline Phosphatase 75 U/L (38-126); Anion Gap 7 mmol/L (4-12); Aspartate Amino Transferase 36 U/L (14-36); Bilirubin,Total 0.4 mg/dL (0.2-1.3); Blood Urea Nitrogen 16 mg/dL (7-17); Calcium 10.7 mg/dL (8.4-10.2); Carbon Dioxide 28 mmol/L (22-30); Chloride 104 mmol/L (98-107); Cholesterol 141 mg/dL (0-200); Estimated Glomerular Filt Rate > 60; Glucose 140 mg/dL (65-110); HDL Direct 69 mg/dL; Potassium 4.6 mmol/L (3.4-5.0); Sodium 139 mmol/L (137-145); Total Protein 6.8 g/dL (6.3-8.2); Triglycerides 65 mg/dL (<150)
[2025-03-18 11:03] LABS: Thyroid Stimulating Hormone 3.020 uIU/mL (0.465-4.680)
[2025-03-18 11:53] LABS: Free T4 Free Thyroxine 0.97 ng/dL (0.78-2.19)
[2025-03-18 17:10] LABS: Parathyroid Intact 73.8 pg/mL (14.5-75.2)
[2025-03-19 16:08] LABS: Calcium, Ionized 5.9 mg/dL (4.5-5.6)
== END 2025-03-18 09:48 | disposition home or self-care (01) ==
PROVIDERS: PCP Nurse Practitioner Family; Visit Provider Internal Medicine
DX: E03.9 Hypothyroidism, unspecified (principal); E10.42 Type 1 diabetes mellitus with diabetic polyneuropathy; E10.65 Type 1 diabetes mellitus with hyperglycemia; E78.5 Hyperlipidemia, unspecified; E83.52 Hypercalcemia; I10 Essential (primary) hypertension; M85.80 Other specified disorders of bone density and structure, unspecified site; Z46.81 Encounter for fitting and adjustment of insulin pump; Z71.3 Dietary counseling and surveillance
CPT/HCPCS: 36415; 80053; 80061; 82306; 82330; 83970; 84439; 84443

== ENCOUNTER 2025-03-20 08:00 | Outpatient (RCR) | payer MEDICARE, SELFPAY ==
--- OUTSIDE RECORDS SUMMARY | 2025-03-20 08:21 | XMS_ITS | Continuity of Care Document ---
Author Organization [facility] Address [address] [place] [address] Phone Care Team Providers Care Housekeeping Worker Name Role Phone Napoleon Galaviz Unavailable Unavailable Procedures Procedure Date Eye Exam Established Pt Ophthalmoscopy, Subsequent Ophthalmoscopy, Subsequent Optic Nerve Topography Optic Nerve Topography Treatment Of Retinal Lesion Kenalog/Triamcinolone Acetonide Inj Treatment Of Retinal Lesion Advance Directives Directive Yes / No Effective Date File Name No Information Encounters Encounter Description Practice Location Reason(s) For Visit Diagnoses Date Provider Providers Copied on Encounter [facility], [address] [place] [address] [address], [place], [place], [id number], [place] tel:[phone] [facility] No Information Guillaume Bender. [address] [place], [place], [facility], [place]. tel:[phone] Referring Provider: Napoleon Zambrano, [address], [place], [facility]. tel:[phone] [facility], [address] [place] [address] [address], [place], [place], [id number], [place] tel:[phone] [facility] No Information Guillaume Bender. [address] [place], [address], [place]. tel:[phone] [facility], [address] [place] [address] [address], [place], [place], [id number], [place] tel:[phone] [facility] No Information Guillaume Bender. [address] [place], [address], [place]. tel:[phone] Referring Provider: Napoleon Zambrano, [address] [place] [address], [address]. tel:[phone] Family History Family Member Type Diagnosis Age At Onset No Information Payers Payer name Insurance type Covered republican ID Authoriza tion(s) No Information Social History [...]
--- OUTSIDE RECORDS SUMMARY | 2025-03-20 08:21 | XMS_ITS | Clinical Summary ---
Author Organization [facility] Address [address] [place] [id number] Care Team Providers Care [employer] Business Analyst Name Role Phone Cassy Street MD Primary [...] age to complete this topic Care Teams [employer] Business Analyst Relationship Specialty Start Date End Date Cassy Street MD [address], [place] [address] PCP - General 09/30/14
--- OUTSIDE RECORDS SUMMARY | 2025-03-20 08:21 | XMS_ITS | Encounter Summary ---
Author Organization [facility] Address [address] [place] [id number] Care Team Providers Care Preschool Adviser Name Role Phone Cassy Street MD Primary Care Provider Encounter Details Date Type Department Care Team (Late st Contact Info) Description 06/11/2017 [place] [address] , Generic Conversion, Social History Tobacco Use [...] on filedocumented in this encounter Care Teams Preschool Adviser Relationship Specialty Start Date End Date Cassy Street MD [address], [place] [address] PCP - General 09/30/14 documented as of this encounter
[2025-03-20 08:51] LABS: Total Volume 24 Hour Urine 2550 ml
[2025-03-20 09:18] LABS: Creatinine 24 Hour Urine 0.6 gm/24 (0.8-1.8)
[2025-03-21 12:09] LABS: Calcium, Urine 3.3 mg/dL (Not Estab.)
== END 2025-03-20 08:18 | disposition home or self-care (01) ==
LOC: ANHLAB 08:00
PROVIDERS: PCP Nurse Practitioner Family; Visit Provider Internal Medicine
DX: E21.0 Primary hyperparathyroidism (principal); E83.52 Hypercalcemia
CPT/HCPCS: 81050; 82340; 82570